=== PATIENT | female | born 1935 | race Caucasian/White ===

== ENCOUNTER 2016-10-02 14:14 | Inpatient (IN) | payer MEDICARE, OTHER ==
[~2016-10-02] VITALS: Ht 165.1 cm; Wt 51.3 kg
[~2016-10-02 14:14] MED LIST: BUPR150T11 PO; CITA20TA5 PO; ENOX40DI SQ; HYDR-2666 PO; IPRA3AMP23 IH; LOSA25TA4 PO; MAGN2400 PO; NITR0.4T SL; PANT40TA5 PO; SIMV20TA3 PO; WARF3TAB PO
[2016-10-02] MEDS ORDERED: NALOXONE 0.4 MG/ML VIAL. IV ONE (14:45)
[2016-10-02 15:00] LABS: BASO % 1 % (0-3); EOS % 0 % (0-3); HEMATOCRIT 46.5 % (36.0-47.0); HEMOGLOBIN 15.1 g/dL (12.0-15.5); LYMPH # 1.2 x10^3/uL (1.0-4.8); LYMPH % 14 % (24-48); MEAN CORPUSCULAR HEMOGLOBIN 31 pg (25-35); MEAN CORPUSCULAR HGB CONC 33 g/dL (31-37); MEAN CORPUSCULAR VOLUME 95 fL (79-100); MONO % 6 % (0-9); NEUT % 79 % (31-73); PLATELET COUNT 252 x10^3/uL (140-400); RED BLOOD COUNT 4.88 x10^6/uL (3.50-5.40); RED CELL DISTRIBUTION WIDTH 14.1 % (11.5-14.5)
[2016-10-02 15:11] LABS: INR 1.1 (0.8-1.1); PROTHROMBIN TIME PATIENT 13.2 SEC (11.7-14.0)
--- NOTE | 2016-10-02 15:20 | RAD ---
Clinical indications: Altered mental status today. History of previous multiple strokes.. Code stroke. Technique: Noncontrast axial cross sectional scanning of the head was performed. PQRS Compliance Statement: One or more of the following individualized dose reduction techniques were utilized for this examination: 1. Automated exposure control 2. Adjustment of the mA and/or kV according to patient size 3. Use of iterative reconstruction technique Comparison: September 15, 2012. Findings: No acute intracranial hemorrhage or midline shift or mass-effect or hydrocephalus or extra-axial fluid collection is seen. Severe bilateral periventricular and subcortical white matter hypodensities are again seen consistent with chronic small vessel ischemic disease in this age group. This has not changed significantly. An old lacunar infarct of the lower brainstem is seen. No skull fracture or pneumocephalus is seen. No opacification of the mastoid sinuses or the paranasal sinuses is seen. The maxillary sinuses are not completely seen in this study. Impression: No acute intracranial hemorrhage is seen. Severe diffuse chronic ischemic disease. If clinically needed, an MRI study of the brain may be helpful for further evaluation. Note-this critical result was called to Dr. Katelyn Jeronimo in the emergency room at 3:15 PM on October 02, 2016.
[2016-10-02 15:25] LABS: CALCIUM 9.2 mg/dL (8.5-10.1); CREATININE 0.7 mg/dL (0.6-1.0); GFR 80.1; POTASSIUM 4.7 mmol/L (3.5-5.1)
[2016-10-02 15:31] LABS: ALBUMIN 2.5 g/dL (3.4-5.0); ALBUMIN/GLOBULIN RATIO 0.5 (1.0-1.7); TOTAL PROTEIN 7.1 g/dL (6.4-8.2)
--- NOTE | 2016-10-02 16:15 | RAD ---
Portable AP semiupright chest x-ray Clinical indications: Code stroke.. Comparison: August 13, 2013. Findings: No acute lung infiltrate or pleural effusion or pulmonary edema or lung mass or pneumothorax is seen. The heart size, pulmonary vasculature, mediastinum and both nura are stable. Old healed left rib cage fractures are seen. Impression: No acute radiographic abnormality is seen.
[2016-10-02] MEDS ORDERED: ACETAMINOPHEN 325 MG TABLET. PO PRN ×2 (17:00→18:30)
[2016-10-02] MEDS ORDERED: ERYTHROMYCIN 0.5% OPHTH OINTMENT 1GM TUBE. OS ONE (17:00)
[2016-10-02] MEDS ORDERED: FENTANYL PF 100 MCG/2 ML VIAL. IV PRN (17:00)
[2016-10-02] MEDS ORDERED: ONDANSETRON PF 4 MG/2 ML VIAL. IV PRN ×2 (17:00→18:30)
--- NOTE | 2016-10-02 17:13 | PHYS DOC ---
Past Medical History Past Medical History: Anemia, Angina, CAD, Cancer, COPD, Diverticulosis, High Cholesterol, Hip Fracture, Hypertension, [place] Additional Past Medical Histor: FEMUR FX, PAIN, PE, DEPRESSIVE DISORDER, HEARTBURN,CATARACT,EDEMA,INSOMNIA Past Surgical History: Cancer Surgery, Hip Replacement Additional Past Surgical Histo: RIGHT MASTECTOMY Alcohol Use: None Drug Use: None Adult General Chief Complaint Chief Complaint: ALTERED MENTAL STATUS HPI HPI Patient is a 80 year old female who presents with altered mental status. Patient unable to provide any history due to her clinical condition. Reportedly group home staff assisted her with shower at 12:00 noon. She was found about one hour later to be completely unresponsive. She could not be awaked at that facility. Transported here by EMS. Not waking up to answer any questions. Family not present during initial evaluation. Review of Systems Review of Systems Unable to obtain due to clinical condition Current Medications Current Medications Current Medications Medications (Trade) Dose Ordered Sig/Daniel Start Time Stop Time Status Last Admin Dose Admin Acetaminophen (Tylenol) 650 mg PRN Q4HRS PRN 10/02/16 17:00 10/03/16 16:59 Erythromycin (Romycin) 0.25 inch 1X ONCE 10/02/16 17:00 10/02/16 17:01 DC Fentanyl Citrate (Fentanyl 2ml Vial) 25 mcg PRN Q2HR PRN 10/02/16 17:00 10/03/16 16:59 Naloxone HCl (Narcan) 0.4 mg 1X ONCE 10/02/16 14:45 10/02/16 14:46 DC 10/02/16 15:12 0.4 MG Ondansetron HCl (Zofran) 4 mg PRN Q8HRS PRN 10/02/16 17:00 10/03/16 16:59 Allergies Allergies Allergies Coded Allergies Type Severity Reaction Last Updated Verified Oxycodone Allergy Unknown 08/13/13 Yes diltiazem HCl Allergy Unknown 08/13/13 Yes Physical Exam Physical Exam Constitutional: Thin, frail, unresponsive. HENT: Normocephalic, atraumatic, bilateral external ears normal, no hemotympanum , oropharynx moist, nose normal. Eyes: PERRLA 2 mm bilaterally, left eye with injected conjunctiva, eyelash matting, no drainage seen. Neck: supple, no stridor. Cardiovascular: RRR, no murmurs, no edema. Lungs & Thorax: Diminished, clear bilaterally,, no respiratory distress. Abdomen: soft, no masses, nondistended. Skin: Warm, dry, no erythema, no rash. Back: No deformity. Extremities: Right upper extremity contracture, otherwise no deformity. Neurologic: Unresponsive, GCS is 6, withdraws to pain. Psychologic: unable to assess due to clinical condition. Current Patient Data Vital Signs Vital Signs Date Time Temp Pulse Resp B/P Pulse Ox O2 Delivery O2 Flow Rate FiO2 10/02/16 14:14 98.7 72 14 187/91 98 Nasal Cannula 2 98.7 Lab Values Laboratory Tests Test 10/02/16 14:20 White Blood Count 9.0x10^3/uL (4.0-11.0) Red Blood Count 4.88x10^6/uL (3.50-5.40) Hemoglobin 15.1g/dL (12.0-15.5) Hematocrit 46.5% (36.0-47.0) Mean Corpuscular Volume 95fL (79-100) Mean Corpuscular Hemoglobin 31pg (25-35) Mean Corpuscular Hemoglobin Concent 33g/dL (31-37) Red Cell Distribution Width 14.1% (11.5-14.5) Platelet Count 252x10^3/uL (140-400) Neutrophils (%) (Auto) 79% (31-73) H Lymphocytes (%) (Auto) 14% (24-48) L Monocytes (%) (Auto) 6% (0-9) Eosinophils (%) (Auto) 0% (0-3) Basophils (%) (Auto) 1% (0-3) Neutrophils # (Auto) 7.1x10^3uL (1.8-7.7) Lymphocytes # (Auto) 1.2x10^3/uL (1.0-4.8) Monocytes # (Auto) 0.5x10^3/uL (0.0-1.1) Eosinophils # (Auto) 0.0x10^3/uL (0.0-0.7) Basophils # (Auto) 0.0x10^3/uL (0.0-0.2) Prothrombin Time 13.2SEC (11.7-14.0) Prothrombin Time INR 1.1 (0.8-1.1) PTT 30SEC (24-38) Sodium Level 139mmol/L (136-145) Potassium Level 4.7mmol/L (3.5-5.1) Chloride Level 102mmol/L (98-107) Carbon Dioxide Level 31mmol/L (21-32) Anion Gap 6 (6-14) Blood Urea Nitrogen 16mg/dL (7-20) Creatinine 0.7mg/dL (0.6-1.0) Estimated GFR (Cockcroft-Gault) 80.1 BUN/Creatinine Ratio 23 (6-20) H Glucose Level 90mg/dL (70-99) Calcium Level 9.2mg/dL (8.5-10.1) Total Bilirubin 1.0mg/dL (0.2-1.0) Aspartate Amino Transferase (AST) 24U/L (15-37) Alanine Aminotransferase (ALT) 17U/L (14-59) Alkaline Phosphatase 187U/L (46-116) H Troponin I Quantitative 0.017ng/mL (0.000-0.055) PW-Tcc-U-Type Natriuretic Peptide 2563pg/mL (0-449) H Total Protein 7.1g/dL (6.4-8.2) Albumin 2.5g/dL (3.4-5.0) L Albumin/Globulin Ratio 0.5 (1.0-1.7) L Salicylates Level < 2.8mg/dL (2.8-20.0) L Salicylate Last Dose Date Unknown Salicylate Last Dose Time Unknown Acetaminophen Level 2.5mcg/ml (10-30) L Acetaminophen Last Dose Date Unknown Acetaminophen Last Dose Time Unknown Laboratory Tests 10/02/16 14:20 Laboratory Tests 10/02/16 14:20 EKG EKG interpreted by me: NSR rate 77, no ST elevation, T waves inverted in 3 & aVF without ST depression, QTc prolonged 473 ms, PACs.[] Radiology/Procedures Radiology/Procedures PROCEDURE: CT CODE STROKE HEAD WO Clinical indications: Altered mental status today. History of previous multiple strokes.. Code stroke. Technique: Noncontrast axial cross sectional scanning of the head was performed. PQRS Compliance Statement: One or more of the following individualized dose reduction techniques were utilized for this examination: 1. Automated exposure control 2. Adjustment of the mA and/or kV according to patient size 3. Use of iterative reconstruction technique Comparison: September 15, 2012. Findings: No acute intracranial hemorrhage or midline shift or mass-effect or hydrocephalus or extra-axial fluid collection is seen. Severe bilateral periventricular and subcortical white matter hypodensities are again seen consistent with chronic small vessel ischemic disease in this age group. This has not changed significantly. An old lacunar infarct of the lower brainstem is seen. No skull fracture or pneumocephalus is seen. No opacification of the mastoid sinuses or the paranasal sinuses is seen. The maxillary sinuses are not completely seen in this study. Impression: No acute intracranial hemorrhage is seen. Severe diffuse chronic ischemic disease. If clinically needed, an MRI study of the brain may be helpful for further evaluation. Note-this critical result was called to Dr. Charlie Jeronimo in the emergency room at 3:15 PM on October 02, 2016. DICTATED and SIGNED BY: BRANDON MERRILL MD DATE: 10/02/16 1510 PROCEDURE: CHEST AP ONLY Portable AP semiupright chest x-ray Clinical indications: Code stroke.. Comparison: August 13, 2013. Findings: No acute lung infiltrate or pleural effusion or pulmonary edema or lung mass or pneumothorax is seen. The heart size, pulmonary vasculature, mediastinum and both nura are stable. Old healed left rib cage fractures are seen. Impression: No acute radiographic abnormality is seen. DICTATED and SIGNED BY: BRANDON MERRILL MD DATE: 10/02/16 1611[] Course & Med Decision Making Course & Med Decision Making Pertinent Labs and Imaging studies reviewed. (See chart for details) Patient presents with decreased level of consciousness/altered mental status from group home. Last normal at noon. Protecting airway during my evaluation. Patient has DNR order. Obtained stat head CT consistent with code stroke protocol. This was negative for hemorrhage, no definite acute ischemic process. I discussed with her 2 daughters after this result was obtained. They felt that the patient would not want to receive TPA if this were due to stroke. Result was obtained at about 3.5 hours after onset of symptoms, not clear stroke etiology, risks of administering TPA likely to be greater than benefits. I agree with not administering TPA. Administered Narcan due to possible contribution of opiates to her condition today. Obtained other labs, EKG, chest x-ray. While evaluation was pending the patient began to wake up more. She was able to speak clearly and teary on a conversation with her daughters. She was able to move her left side freely, normal hemiparesis of her right upper and lower extremities is unchanged from baseline. She felt well. She did agree with plan for admission for further evaluation. Discussed with Dr. Shaikh who agrees to admit to inpatient status, neurology consult placed to Dr. Parsons. Patient admitted in stable condition. [] Dragon Disclaimer Dragon Disclaimer This electronic medical record was generated, in whole or in part, using a voice recognition dictation system. Departure Departure Impression: Primary Impression: Altered mental status Additional Impressions: Decreased level of consciousness Essential hypertension Disposition: 09 ADMITTED INPATIENT Admitting Physician: Zoey Shaikh Condition: STABLE Problem Qualifiers CHARLIE JERONIMO MD Oct 02, 2016 17:13
[2016-10-02] MEDS ORDERED: HYDROCODONE/APAP 5/325MG TABLET. PO PRN (18:15)
[2016-10-02] MEDS ORDERED: NITROGLYCERIN SUBLINGUAL 0.4 MG BOTTLE OF 25. SL SCH (18:15)
[2016-10-02] MEDS ORDERED: IPRATRPIUM/ALBUTEROL 0.5/2.5MG 3 ML NEBU. NEB PRN (18:15)
--- NOTE | 2016-10-02 18:27 | PDOC1 ---
History and Physical Date of Admission Date of Admission 10/02/16 Identification/Chief Complaint Chief Complaint AMS Problems: Source Source: Caregiver, Chart review History of Present Illness History of Present Illness HPI HPI Patient is a 80 year old female who presents with altered mental statu today. Pt has mild dementia, knows it is hospital, need a min to think which one, doesnot know the year, and family denies dementia. FRom snf. Pt dosenot remember what happened. as per ERP, and daughter who were called BY snf, PT got a shower today, sit in a chair, then became unresponsiveness about 1.30pm. Pt was sent to ER, eventually woke up about 40min later. pt now feels normal. Right side hemiparesis with h/o stroke. on thicken liquid. denies fever, chills, cough , N/V, chest pain. PT GOT narcan in ER,no response. Family denies HTN, but ON LOsartan and BP 190s in ER. also denies OK, but had PCI before. Past Medical History Cardiovascular: CAD Pulmonary: COPD Family History Family History: No Significant Social History Smoke: No ALCOHOL: none Drugs: None Current Problem List Problem List Problems Medical Problems: (1) Altered mental status Status: Acute (2) Decreased level of consciousness Status: Acute (3) Essential hypertension Status: Acute Current Medications Current Medications Current Medications Medications (Trade) Dose Ordered Sig/Daniel Start Time Stop Time Status Last Admin Dose Admin Acetaminophen (Tylenol) 650 mg PRN Q4HRS PRN 10/02/16 17:00 10/03/16 16:59 Erythromycin (Romycin) 0.25 inch 1X ONCE 10/02/16 17:00 10/02/16 17:01 DC Fentanyl Citrate (Fentanyl 2ml Vial) 25 mcg PRN Q2HR PRN 10/02/16 17:00 10/03/16 16:59 Naloxone HCl (Narcan) 0.4 mg 1X ONCE 10/02/16 14:45 10/02/16 14:46 DC 10/02/16 15:12 0.4 MG Ondansetron HCl (Zofran) 4 mg PRN Q8HRS PRN 10/02/16 17:00 10/03/16 16:59 Allergies Allergies Allergies Coded Allergies Type Severity Reaction Last Updated Verified Oxycodone Allergy Unknown 08/13/13 Yes diltiazem HCl Allergy Unknown 08/13/13 Yes ROS Review of System CONSTITUTIONAL: No fever or chills EYES: No recent changes SKIN: No rash or itching CARDIOVASCULAR: No chest pain, syncope, palpitations, or edema RESPIRATORY: No SOB or cough GASTROINTESTINAL: No nausea, vomiting or abdominal pain NEUROLOGICAL: No headaches or weakness ENDOCRINE: No cold or heat intolerance GENITOURINARY: No urgency or frequency of urination MUSCULOSKELETAL: No back pain or joint pain LYMPHATICS: No enlarged lymph nodes PSYCHIATRIC: No anxiety or depression Physical Exam Physical Exam GEN.: No apparent distress. Alert and oriented x2 HEENT: Head is normocephalic, atraumatic NECK: Supple. LUNGS: Clear to auscultation. HEART: RRR, S1, S2 present. Peripheral pulses intact ABDOMEN: Soft, nontender. Positive bowel sounds. EXTREMITIES: Without any cyanosis. NEUROLOGIC: Normal speech, normal tone. right side hemiparesis PSYCHIATRIC: Normal affect, normal mood. SKIN: No ulcerations Vitals Vitals Vital Signs Date Time Temp Pulse Resp B/P Pulse Ox O2 Delivery O2 Flow Rate FiO2 10/02/16 14:14 98.7 72 14 187/91 98 Nasal Cannula 2 98.7 Labs Labs Laboratory Tests Test 10/02/16 14:20 White Blood Count 9.0x10^3/uL (4.0-11.0) Red Blood Count 4.88x10^6/uL (3.50-5.40) Hemoglobin 15.1g/dL (12.0-15.5) Hematocrit 46.5% (36.0-47.0) Mean Corpuscular Volume 95fL (79-100) Mean Corpuscular Hemoglobin 31pg (25-35) Mean Corpuscular Hemoglobin Concent 33g/dL (31-37) Red Cell Distribution Width 14.1% (11.5-14.5) Platelet Count 252x10^3/uL (140-400) Neutrophils (%) (Auto) 79% (31-73) Lymphocytes (%) (Auto) 14% (24-48) Monocytes (%) (Auto) 6% (0-9) Eosinophils (%) (Auto) 0% (0-3) Basophils (%) (Auto) 1% (0-3) Neutrophils # (Auto) 7.1x10^3uL (1.8-7.7) Lymphocytes # (Auto) 1.2x10^3/uL (1.0-4.8) Monocytes # (Auto) 0.5x10^3/uL (0.0-1.1) Eosinophils # (Auto) 0.0x10^3/uL (0.0-0.7) Basophils # (Auto) 0.0x10^3/uL (0.0-0.2) Prothrombin Time 13.2SEC (11.7-14.0) Prothromb Time International Ratio 1.1 (0.8-1.1) Activated Partial Thromboplast Time 30SEC (24-38) Sodium Level 139mmol/L (136-145) Potassium Level 4.7mmol/L (3.5-5.1) Chloride Level 102mmol/L (98-107) Carbon Dioxide Level 31mmol/L (21-32) Anion Gap 6 (6-14) Blood Urea Nitrogen 16mg/dL (7-20) Creatinine 0.7mg/dL (0.6-1.0) Estimated GFR (Cockcroft-Gault) 80.1 BUN/Creatinine Ratio 23 (6-20) Glucose Level 90mg/dL (70-99) Calcium Level 9.2mg/dL (8.5-10.1) Total Bilirubin 1.0mg/dL (0.2-1.0) Aspartate Amino Transf (AST/SGOT) 24U/L (15-37) Alanine Aminotransferase (ALT/SGPT) 17U/L (14-59) Alkaline Phosphatase 187U/L (46-116) Troponin I Quantitative 0.017ng/mL (0.000-0.055) UH-[id number]-Q-Type Natriuretic Peptide 2563pg/mL (0-449) Total Protein 7.1g/dL (6.4-8.2) Albumin 2.5g/dL (3.4-5.0) Albumin/Globulin Ratio 0.5 (1.0-1.7) Salicylates Level < 2.8mg/dL (2.8-20.0) Salicylate Last Dose Date Unknown Salicylate Last Dose Time Unknown Acetaminophen Level 2.5mcg/ml (10-30) Acetaminophen Last Dose Date Unknown Acetaminophen Last Dose Time Unknown Laboratory Tests Test 10/02/16 14:20 White Blood Count 9.0x10^3/uL (4.0-11.0) Red Blood Count 4.88x10^6/uL (3.50-5.40) Hemoglobin 15.1g/dL (12.0-15.5) Hematocrit 46.5% (36.0-47.0) Mean Corpuscular Volume 95fL (79-100) Mean Corpuscular Hemoglobin 31pg (25-35) Mean Corpuscular Hemoglobin Concent 33g/dL (31-37) Red Cell Distribution Width 14.1% (11.5-14.5) Platelet Count 252x10^3/uL (140-400) Neutrophils (%) (Auto) 79% (31-73) Lymphocytes (%) (Auto) 14% (24-48) Monocytes (%) (Auto) 6% (0-9) Eosinophils (%) (Auto) 0% (0-3) Basophils (%) (Auto) 1% (0-3) Neutrophils # (Auto) 7.1x10^3uL (1.8-7.7) Lymphocytes # (Auto) 1.2x10^3/uL (1.0-4.8) Monocytes # (Auto) 0.5x10^3/uL (0.0-1.1) Eosinophils # (Auto) 0.0x10^3/uL (0.0-0.7) Basophils # (Auto) 0.0x10^3/uL (0.0-0.2) Prothrombin Time 13.2SEC (11.7-14.0) Prothromb Time International Ratio 1.1 (0.8-1.1) Activated Partial Thromboplast Time 30SEC (24-38) Sodium Level 139mmol/L (136-145) Potassium Level 4.7mmol/L (3.5-5.1) Chloride Level 102mmol/L (98-107) Carbon Dioxide Level 31mmol/L (21-32) Anion Gap 6 (6-14) Blood Urea Nitrogen 16mg/dL (7-20) Creatinine 0.7mg/dL (0.6-1.0) Estimated GFR (Cockcroft-Gault) 80.1 BUN/Creatinine Ratio 23 (6-20) Glucose Level 90mg/dL (70-99) Calcium Level 9.2mg/dL (8.5-10.1) Total Bilirubin 1.0mg/dL (0.2-1.0) Aspartate Amino Transf (AST/SGOT) 24U/L (15-37) Alanine Aminotransferase (ALT/SGPT) 17U/L (14-59) Alkaline Phosphatase 187U/L (46-116) Troponin I Quantitative 0.017ng/mL (0.000-0.055) KQ-Rsm-S-Type Natriuretic Peptide 2563pg/mL (0-449) Total Protein 7.1g/dL (6.4-8.2) Albumin 2.5g/dL (3.4-5.0) Albumin/Globulin Ratio 0.5 (1.0-1.7) Salicylates Level < 2.8mg/dL (2.8-20.0) Salicylate Last Dose Date Unknown Salicylate Last Dose Time Unknown Acetaminophen Level 2.5mcg/ml (10-30) Acetaminophen Last Dose Date Unknown Acetaminophen Last Dose Time Unknown VTE Prophylaxis Ordered VTE Prophylaxis Devices: Yes VTE Pharmacological Prophylaxi: No Assessment/Plan Assessment/Plan 1. AMS with unresponsiveness, not clear etiology 2. baseline mild dementia 3. from SNF 4. h/o CAD WITH PCI 5. HTN 6. HLD 7. BCa post sx 8. mild malnutrition 9. h/o stroke with right side hemiparesis plan: 1, neuro consult 2. MRI brain 3. cont home meds on warfarin, not clear etiology INR daily 4. DNR ODALIS KING MD Oct 02, 2016 18:27
[2016-10-02] MEDS ORDERED: hydrALAZINE 20 MG/ML VIAL. IVP PRN (18:30)
[2016-10-02] MEDS ORDERED: MAGNESIUM HYDROXIDE 2,400 MG/30 ML ORAL.SUSP. PO PRN (18:45)
[2016-10-02 18:46] LABS: BILIRUBIN,URINE NEGATIVE (NEG); GLUCOSE,URINE NEGATIVE (NEG); NITRITE,URINE POSITIVE (NEG); PROTEIN,URINE NEGATIVE (NEG-TRACE)
[2016-10-02] MEDS ORDERED: WARFARIN 3 MG TABLET. PO SCH (19:00)
[2016-10-02 19:05] LABS: BACTERIA,URINE MANY /HPF (0-FEW); RBC,URINE 0 /HPF (0-2); SQUAMOUS EPITHELIAL CELL,UR FEW /LPF
[2016-10-02 19:35] VITALS: BP 164/94
[2016-10-02 19:40] VITALS: BP 164/94
--- NOTE | 2016-10-02 19:41 | RAD ---
BRAIN W/O CONTRAST Indication: PT C/O AMS WITH HX PAST STROKES...[phone] Reason: AMS / Spl. Instructions: / History: COMPARISON: CT head from February 06, 2015 TECHNIQUE: Axial diffusion weighted imaging was obtained. Additional sagittal T1, axial T1, axial FLAIR, and axial T2 weighted imaging of the brain was also performed. FINDINGS: There is no restricted diffusion to suggest acute or recent infarct. No acute intracranial hemorrhage or extra-axial fluid collection. There is generalized cerebral volume loss to a moderate degree. There is also moderate confluent white matter disease involving most of the cerebral hemisphere white matter and portions of the cerebellar white matter. The gradient images show scattered foci of hemosiderin deposition which may represent sequelae of previous hypertensive micro hemorrhages. There is no midline shift or mass effect. Arterial flow voids are maintained at the level of the skullbase. Globes orbits are within normal limits. Paranasal sinuses and mastoid air cells are clear. There are areas of encephalomalacia in the left frontal lobe and left parietal occipital lobes from old infarct. Impression: - Negative for acute or recent infarct. No acute intracranial abnormality. - Moderate cerebral volume loss and white matter disease. There are also scattered foci of hemosiderin deposition. This constellation of findings could reflect sequelae of longstanding hypertension. Cerebral amyloid disease is a less likely alternative. - Old left frontal lobe and left parietal occipital lobe infarcts. Electronically signed by: Deepak Tejeda (Oct 02, 2016 19:41:07)
[2016-10-02] MEDS ORDERED: ENOXAPARIN 40 MG/0.4 ML SYRINGE. SQ SCH (21:00)
[2016-10-02] MEDS: SIMVASTATIN 20 MG TABLET PO SCH (21:09)
[2016-10-02 23:38] VITALS: BP 124/63
[2016-10-03] VITALS (7 sets, daily range): BP systolic 137–153; BP diastolic 65–75
[2016-10-03] MEDS ORDERED: FERR-26 PO (02:29)
[2016-10-03 05:31] LABS: BASO % 1 % (0-3); EOS % 1 % (0-3); HEMATOCRIT 41.5 % (36.0-47.0); HEMOGLOBIN 13.6 g/dL (12.0-15.5); LYMPH % 13 % (24-48); MEAN CORPUSCULAR HEMOGLOBIN 31 pg (25-35); MEAN CORPUSCULAR HGB CONC 33 g/dL (31-37); MEAN CORPUSCULAR VOLUME 95 fL (79-100); MONO % 9 % (0-9); NEUT % 76 % (31-73); PLATELET COUNT 246 x10^3/uL (140-400); RED BLOOD COUNT 4.37 x10^6/uL (3.50-5.40); RED CELL DISTRIBUTION WIDTH 14.1 % (11.5-14.5); WHITE BLOOD COUNT 7.7 x10^3/uL (4.0-11.0)
[2016-10-03 05:37] LABS: INR 1.1 (0.8-1.1); PROTHROMBIN TIME PATIENT 13.7 SEC (11.7-14.0)
[2016-10-03 05:39] LABS: CALCIUM 8.9 mg/dL (8.5-10.1); CREATININE 0.6 mg/dL (0.6-1.0); GFR 95.7; POTASSIUM 3.8 mmol/L (3.5-5.1)
[2016-10-03] MEDS: PANTOPRAZOLE 40 MG TABLET.DR. PO SCH (06:15)
[2016-10-03] MEDS: CITALOPRAM 20 MG TABLET. PO SCH (09:23)
[2016-10-03] MEDS: LOSARTAN POTASSIUM 25 MG TABLET. PO SCH (09:23)
[2016-10-03] MEDS: buPROPion SR 150 MG TABLET.SA PO SCH (09:23)
[2016-10-03] MEDS: CEFTRIAXONE SODIUM 1 GM in IV NORMAL SALINE 50ML 50 ML IV SCH (09:23)
--- NOTE | 2016-10-03 11:20 | PDOC ---
PROGRESS NOTES Chief Complaint Chief Complaint 1. AMS with unresponsiveness, not clear etiology 2. baseline mild dementia 3. from SNF 4. h/o CAD WITH PCI 5. HTN 6. HLD 7. BCa post sx 8. mild malnutrition 9. h/o stroke with right side hemiparesis History of Present Illness History of Present Illness non verbal to me today CUrled up Per records on dysphagia 2 with honey thickened at SNU Chart reviewed, SNU resident (GL?) Onw arf bec of hx PE BS 69 this AM from 90s - on low side UTI on UA PLAn: Start IV antibiotics for UTI Urine cx DYsphagia diet PT/OT Ok to t/o CVC prn IV pushes for BP (-on high side) - lost IV site - ok for clonidine pO q1 prn Address hypoglycemia - not on insulin - not eating? d5 pushes prn Dw RN Vitals Vitals Vital Signs Date Time Temp Pulse Resp B/P Pulse Ox O2 Delivery O2 Flow Rate FiO2 10/03/16 09:23 100 145/75 10/03/16 08:00 Room Air 10/03/16 07:00 97.7 20 91 97.7 10/02/16 23:38 2.0 Physical Exam Lungs: Wheezing, Other Labs LABS Laboratory Tests Test 10/02/16 14:20 10/02/16 18:13 10/03/16 04:00 White Blood Count 9.0x10^3/uL (4.0-11.0) 7.7x10^3/uL (4.0-11.0) Red Blood Count 4.88x10^6/uL (3.50-5.40) 4.37x10^6/uL (3.50-5.40) Hemoglobin 15.1g/dL (12.0-15.5) 13.6g/dL (12.0-15.5) Hematocrit 46.5% (36.0-47.0) 41.5% (36.0-47.0) Mean Corpuscular Volume 95fL (79-100) 95fL (79-100) Mean Corpuscular Hemoglobin 31pg (25-35) 31pg (25-35) Mean Corpuscular Hemoglobin Concent 33g/dL (31-37) 33g/dL (31-37) Red Cell Distribution Width 14.1% (11.5-14.5) 14.1% (11.5-14.5) Platelet Count 252x10^3/uL (140-400) 246x10^3/uL (140-400) Neutrophils (%) (Auto) 79% (31-73) 76% (31-73) Lymphocytes (%) (Auto) 14% (24-48) 13% (24-48) Monocytes (%) (Auto) 6% (0-9) 9% (0-9) Eosinophils (%) (Auto) 0% (0-3) 1% (0-3) Basophils (%) (Auto) 1% (0-3) 1% (0-3) Neutrophils # (Auto) 7.1x10^3uL (1.8-7.7) 5.8x10^3uL (1.8-7.7) Lymphocytes # (Auto) 1.2x10^3/uL (1.0-4.8) 1.0x10^3/uL (1.0-4.8) Monocytes # (Auto) 0.5x10^3/uL (0.0-1.1) 0.7x10^3/uL (0.0-1.1) Eosinophils # (Auto) 0.0x10^3/uL (0.0-0.7) 0.1x10^3/uL (0.0-0.7) Basophils # (Auto) 0.0x10^3/uL (0.0-0.2) 0.0x10^3/uL (0.0-0.2) Prothrombin Time 13.2SEC (11.7-14.0) 13.7SEC (11.7-14.0) Prothromb Time International Ratio 1.1 (0.8-1.1) 1.1 (0.8-1.1) Activated Partial Thromboplast Time 30SEC (24-38) Sodium Level 139mmol/L (136-145) 142mmol/L (136-145) Potassium Level 4.7mmol/L (3.5-5.1) 3.8mmol/L (3.5-5.1) Chloride Level 102mmol/L (98-107) 104mmol/L (98-107) Carbon Dioxide Level 31mmol/L (21-32) 31mmol/L (21-32) Anion Gap 6 (6-14) 7 (6-14) Blood Urea Nitrogen 16mg/dL (7-20) 16mg/dL (7-20) Creatinine 0.7mg/dL (0.6-1.0) 0.6mg/dL (0.6-1.0) Estimated GFR (Cockcroft-Gault) 80.1 95.7 BUN/Creatinine Ratio 23 (6-20) Glucose Level 90mg/dL (70-99) 69mg/dL (70-99) Calcium Level 9.2mg/dL (8.5-10.1) 8.9mg/dL (8.5-10.1) Total Bilirubin 1.0mg/dL (0.2-1.0) Aspartate Amino Transf (AST/SGOT) 24U/L (15-37) Alanine Aminotransferase (ALT/SGPT) 17U/L (14-59) Alkaline Phosphatase 187U/L (46-116) Troponin I Quantitative 0.017ng/mL (0.000-0.055) OX-Fpm-O-Type Natriuretic Peptide 2563pg/mL (0-449) Total Protein 7.1g/dL (6.4-8.2) Albumin 2.5g/dL (3.4-5.0) Albumin/Globulin Ratio 0.5 (1.0-1.7) Salicylates Level < 2.8mg/dL (2.8-20.0) Salicylate Last Dose Date Unknown Salicylate Last Dose Time Unknown Acetaminophen Level 2.5mcg/ml (10-30) Acetaminophen Last Dose Date Unknown Acetaminophen Last Dose Time Unknown Urine Collection Type U cath Urine Color Yellow Urine Clarity Clear Urine pH 6.0 Urine Specific [place] 1.020 Urine Protein Negativemg/dL (NEG-TRACE) Urine Glucose (UA) Negativemg/dL (NEG) Urine Ketones (Stick) 15mg/dL (NEG) Urine Blood Negative (NEG) Urine Nitrite Positive (NEG) Urine Bilirubin Negative (NEG) Urine Urobilinogen Dipstick 2.0mg/dL (0.2 mg/dL) Urine Leukocyte Esterase Small (NEG) Urine RBC 0/HPF (0-2) Urine WBC 11-20/HPF (0-4) Urine Squamous Epithelial Cells Few/LPF Urine Bacteria Many/HPF (0-FEW) Urine Mucus Slight/LPF Review of Systems Review of Systems non verbal Assessment and Plan Assessmemt and Plan Problems Medical Problems: (1) Altered mental status Status: Acute (2) Decreased level of consciousness Status: Acute (3) Essential hypertension Status: Acute Problems: Comment Review of Relevant I have reviewed the following items prince (where applicable) has been applied. Labs Laboratory Tests Test 10/02/16 14:20 10/02/16 18:13 10/03/16 04:00 White Blood Count 9.0x10^3/uL (4.0-11.0) 7.7x10^3/uL (4.0-11.0) Red Blood Count 4.88x10^6/uL (3.50-5.40) 4.37x10^6/uL (3.50-5.40) Hemoglobin 15.1g/dL (12.0-15.5) 13.6g/dL (12.0-15.5) Hematocrit 46.5% (36.0-47.0) 41.5% (36.0-47.0) Mean Corpuscular Volume 95fL (79-100) 95fL (79-100) Mean Corpuscular Hemoglobin 31pg (25-35) 31pg (25-35) Mean Corpuscular Hemoglobin Concent 33g/dL (31-37) 33g/dL (31-37) Red Cell Distribution Width 14.1% (11.5-14.5) 14.1% (11.5-14.5) Platelet Count 252x10^3/uL (140-400) 246x10^3/uL (140-400) Neutrophils (%) (Auto) 79% (31-73) 76% (31-73) Lymphocytes (%) (Auto) 14% (24-48) 13% (24-48) Monocytes (%) (Auto) 6% (0-9) 9% (0-9) Eosinophils (%) (Auto) 0% (0-3) 1% (0-3) Basophils (%) (Auto) 1% (0-3) 1% (0-3) Neutrophils # (Auto) 7.1x10^3uL (1.8-7.7) 5.8x10^3uL (1.8-7.7) Lymphocytes # (Auto) 1.2x10^3/uL (1.0-4.8) 1.0x10^3/uL (1.0-4.8) Monocytes # (Auto) 0.5x10^3/uL (0.0-1.1) 0.7x10^3/uL (0.0-1.1) Eosinophils # (Auto) 0.0x10^3/uL (0.0-0.7) 0.1x10^3/uL (0.0-0.7) Basophils # (Auto) 0.0x10^3/uL (0.0-0.2) 0.0x10^3/uL (0.0-0.2) Prothrombin Time 13.2SEC (11.7-14.0) 13.7SEC (11.7-14.0) Prothromb Time International Ratio 1.1 (0.8-1.1) 1.1 (0.8-1.1) Activated Partial Thromboplast Time 30SEC (24-38) Sodium Level 139mmol/L (136-145) 142mmol/L (136-145) Potassium Level 4.7mmol/L (3.5-5.1) 3.8mmol/L (3.5-5.1) Chloride Level 102mmol/L (98-107) 104mmol/L (98-107) Carbon Dioxide Level 31mmol/L (21-32) 31mmol/L (21-32) Anion Gap 6 (6-14) 7 (6-14) Blood Urea Nitrogen 16mg/dL (7-20) 16mg/dL (7-20) Creatinine 0.7mg/dL (0.6-1.0) 0.6mg/dL (0.6-1.0) Estimated GFR (Cockcroft-Gault) 80.1 95.7 BUN/Creatinine Ratio 23 (6-20) Glucose Level 90mg/dL (70-99) 69mg/dL (70-99) Calcium Level 9.2mg/dL (8.5-10.1) 8.9mg/dL (8.5-10.1) Total Bilirubin 1.0mg/dL (0.2-1.0) Aspartate Amino Transf (AST/SGOT) 24U/L (15-37) Alanine Aminotransferase (ALT/SGPT) 17U/L (14-59) Alkaline Phosphatase 187U/L (46-116) Troponin I Quantitative 0.017ng/mL (0.000-0.055) RF-Eaz-A-Type Natriuretic Peptide 2563pg/mL (0-449) Total Protein 7.1g/dL (6.4-8.2) Albumin 2.5g/dL (3.4-5.0) Albumin/Globulin Ratio 0.5 (1.0-1.7) Salicylates Level < 2.8mg/dL (2.8-20.0) Salicylate Last Dose Date Unknown Salicylate Last Dose Time Unknown Acetaminophen Level 2.5mcg/ml (10-30) Acetaminophen Last Dose Date Unknown Acetaminophen Last Dose Time Unknown Urine Collection Type U cath Urine Color Yellow Urine Clarity Clear Urine pH 6.0 Urine Specific [place] 1.020 Urine Protein Negativemg/dL (NEG-TRACE) Urine Glucose (UA) Negativemg/dL (NEG) Urine Ketones (Stick) 15mg/dL (NEG) Urine Blood Negative (NEG) Urine Nitrite Positive (NEG) Urine Bilirubin Negative (NEG) Urine Urobilinogen Dipstick 2.0mg/dL (0.2 mg/dL) Urine Leukocyte Esterase Small (NEG) Urine RBC 0/HPF (0-2) Urine WBC 11-20/HPF (0-4) Urine Squamous Epithelial Cells Few/LPF Urine Bacteria Many/HPF (0-FEW) Urine Mucus Slight/LPF Laboratory Tests Test 10/02/16 14:20 10/02/16 18:13 10/03/16 04:00 White Blood Count 9.0x10^3/uL (4.0-11.0) 7.7x10^3/uL (4.0-11.0) Red Blood Count 4.88x10^6/uL (3.50-5.40) 4.37x10^6/uL (3.50-5.40) Hemoglobin 15.1g/dL (12.0-15.5) 13.6g/dL (12.0-15.5) Hematocrit 46.5% (36.0-47.0) 41.5% (36.0-47.0) Mean Corpuscular Volume 95fL (79-100) 95fL (79-100) Mean Corpuscular Hemoglobin 31pg (25-35) 31pg (25-35) Mean Corpuscular Hemoglobin Concent 33g/dL (31-37) 33g/dL (31-37) Red Cell Distribution Width 14.1% (11.5-14.5) 14.1% (11.5-14.5) Platelet Count 252x10^3/uL (140-400) 246x10^3/uL (140-400) Neutrophils (%) (Auto) 79% (31-73) 76% (31-73) Lymphocytes (%) (Auto) 14% (24-48) 13% (24-48) Monocytes (%) (Auto) 6% (0-9) 9% (0-9) Eosinophils (%) (Auto) 0% (0-3) 1% (0-3) Basophils (%) (Auto) 1% (0-3) 1% (0-3) Neutrophils # (Auto) 7.1x10^3uL (1.8-7.7) 5.8x10^3uL (1.8-7.7) Lymphocytes # (Auto) 1.2x10^3/uL (1.0-4.8) 1.0x10^3/uL (1.0-4.8) Monocytes # (Auto) 0.5x10^3/uL (0.0-1.1) 0.7x10^3/uL (0.0-1.1) Eosinophils # (Auto) 0.0x10^3/uL (0.0-0.7) 0.1x10^3/uL (0.0-0.7) Basophils # (Auto) 0.0x10^3/uL (0.0-0.2) 0.0x10^3/uL (0.0-0.2) Prothrombin Time 13.2SEC (11.7-14.0) 13.7SEC (11.7-14.0) Prothromb Time International Ratio 1.1 (0.8-1.1) 1.1 (0.8-1.1) Activated Partial Thromboplast Time 30SEC (24-38) Sodium Level 139mmol/L (136-145) 142mmol/L (136-145) Potassium Level 4.7mmol/L (3.5-5.1) 3.8mmol/L (3.5-5.1) Chloride Level 102mmol/L (98-107) 104mmol/L (98-107) Carbon Dioxide Level 31mmol/L (21-32) 31mmol/L (21-32) Anion Gap 6 (6-14) 7 (6-14) Blood Urea Nitrogen 16mg/dL (7-20) 16mg/dL (7-20) Creatinine 0.7mg/dL (0.6-1.0) 0.6mg/dL (0.6-1.0) Estimated GFR (Cockcroft-Gault) 80.1 95.7 BUN/Creatinine Ratio 23 (6-20) Glucose Level 90mg/dL (70-99) 69mg/dL (70-99) Calcium Level 9.2mg/dL (8.5-10.1) 8.9mg/dL (8.5-10.1) Total Bilirubin 1.0mg/dL (0.2-1.0) Aspartate Amino Transf (AST/SGOT) 24U/L (15-37) Alanine Aminotransferase (ALT/SGPT) 17U/L (14-59) Alkaline Phosphatase 187U/L (46-116) Troponin I Quantitative 0.017ng/mL (0.000-0.055) PV-Scv-P-Type Natriuretic Peptide 2563pg/mL (0-449) Total Protein 7.1g/dL (6.4-8.2) Albumin 2.5g/dL (3.4-5.0) Albumin/Globulin Ratio 0.5 (1.0-1.7) Salicylates Level < 2.8mg/dL (2.8-20.0) Salicylate Last Dose Date Unknown Salicylate Last Dose Time Unknown Acetaminophen Level 2.5mcg/ml (10-30) Acetaminophen Last Dose Date Unknown Acetaminophen Last Dose Time Unknown Urine Collection Type U cath Urine Color Yellow Urine Clarity Clear Urine pH 6.0 Urine Specific [place] 1.020 Urine Protein Negativemg/dL (NEG-TRACE) Urine Glucose (UA) Negativemg/dL (NEG) Urine Ketones (Stick) 15mg/dL (NEG) Urine Blood Negative (NEG) Urine Nitrite Positive (NEG) Urine Bilirubin Negative (NEG) Urine Urobilinogen Dipstick 2.0mg/dL (0.2 mg/dL) Urine Leukocyte Esterase Small (NEG) Urine RBC 0/HPF (0-2) Urine WBC 11-20/HPF (0-4) Urine Squamous Epithelial Cells Few/LPF Urine Bacteria Many/HPF (0-FEW) Urine Mucus Slight/LPF Medications Current Medications Naloxone HCl (Narcan) 0.4 mg 1X ONCE IV Last administered on 10/02/16 15:12; Start 10/02/16 at 14:45; Stop 10/02/16 at 14:46; Status DC Erythromycin (Romycin) 0.25 inch 1X ONCE OS ; Start 10/02/16 at 17:00; Stop 10/02 at 17:01; Status DC Ondansetron HCl (Zofran) 4 mg PRN Q8HRS PRN IV NAUSEA/VOMITING; Start 10/02/16 at 17:00; Stop 10/02/16 at 18:31; Status DC Fentanyl Citrate (Fentanyl 2ml Vial) 25 mcg PRN Q2HR PRN IV PAIN; Start at 17:00; Stop 10/03/16 at 16:59 Acetaminophen (Tylenol) 650 mg PRN Q4HRS PRN PO FEVER; Start 10/02/16 at 17:00; Stop 10/02/16 at 18:29; Status DC Bupropion HCl (Wellbutrin Sr) 150 mg DAILY PO Last administered on 10/03/16 09: 23; Start 10/03/16 at 09:00 Citalopram Hydrobromide (Celexa) 20 mg DAILY PO Last administered on 10/03/16 09:23; Start 10/03/16 at 09:00 Enoxaparin Sodium (Lovenox 40mg Syringe) 40 mg Q24H SQ Last administered on 10/02 21:10; Start 10/02/16 at 21:00 Acetaminophen/ Hydrocodone Bitart (Lortab 5/325) 1 tab PRN Q6HRS PRN PO PAIN; Start 10/02/16 at 18:15 Albuterol/ Ipratropium (Duoneb) 3 ml PRN Q6HRS PRN NEB SHORTNESS OF BREATH; Start 10/02/16 at 18:15 Losartan Potassium (Cozaar) 25 mg DAILY PO Last administered on 10/03/16 09:23 ; Start 10/03/16 at 09:00 Nitroglycerin (Nitrostat) 0.4 mg PRN Q5MIN SL ; Start 10/02/16 at 18:15 Pantoprazole Sodium (Protonix) 40 mg DAILYAC PO Last administered on 10/03/16 06:15; Start 10/03/16 at 07:30 Simvastatin (Zocor) 20 mg QHS PO Last administered on 10/02/16 21:09; Start 10/02/16 at 21:00 Warfarin Sodium (Coumadin) 3 mg DAILY16 PO Last administered on 10/02/16 21:10 ; Start 10/02/16 at 19:00 Magnesium Hydroxide (Milk Of Magnesia) 1,200 mg PRN DAILY PRN PO CONSTIPATION; Start 10/02/16 at 18:45 Hydralazine HCl (Apresoline) 10 mg PRN Q6HRS PRN IVP ELEVATED BP, SEE COMMENTS ; Start 10/02/16 at 18:30 Acetaminophen (Tylenol) 650 mg PRN Q6HRS PRN PO FEVER; Start 10/02/16 at 18:30 Ondansetron HCl (Zofran) 4 mg PRN Q6HRS PRN IV NAUSEA/VOMITING; Start 10/02/16 at 18:30 Warfarin Sodium 1 each 1 each PRN DAILY PRN MC SEE COMMENTS; Start 10/02/16 at 18:30 Ceftriaxone Sodium/Sodium Chloride (Rocephin/Iv Sodium Chloride 0.9% 50ml) 50 ml @ 100 mls/hr DAILY IV Last administered on 10/03/16 09:23; Start 10/03/16 at 09:00 Enoxaparin Sodium (Lovenox 60mg Syringe) 50 mg Q12HR SQ Last administered on 09:24; Start 10/03/16 at 09:00 Active Scripts Active Reported Ferrous Sulfate 325 Mg Tablet 1 Tab PO BID Simvastatin 20 Mg Tablet 20 Mg PO QHS Pantoprazole Sodium 40 Mg Tablet.dr 40 Mg PO DAILY Nitrostat (Nitroglycerin) 0.4 Mg Tab.subl 0.4 Mg SL PRN Q5MIN Milk Of Magnesia (Magnesium Hydroxide) 2,400 Mg/10 Ml Oral.susp 1,200 Mg PO PRN DAILY Lovenox (Enoxaparin Sodium) 40 Mg/0.4 Ml Disp.syrin 40 Mg SQ DAILY Losartan Potassium 25 Mg Tablet 25 Mg PO DAILY Hydrocodone-Apap 5-325 (Hydrocodone Bit/Acetaminophen) 1 Each Tablet 1 Each PO PRN Q6HRS Duoneb 0.5 Mg-3 Mg/3 Ml Soln (Ipratropium/Albuterol Sulfate) 3 Ml Ampul.neb 3 Ml IH PRN Q6HRS Coumadin (Warfarin Sodium) 3 Mg Tablet 3 Mg PO DAILY Citalopram Hbr (Citalopram Hydrobromide) 20 Mg Tablet 20 Mg PO DAILY Bupropion Hcl Sr (Bupropion Hcl) 150 Mg Tablet.er 150 Mg PO DAILY Vitals/I & O Vital Sign - Last 24 Hours 10/02/16 10/02/16 10/02/16 10/02/16 14:14 14:22 15:01 15:31 Temp 98.7 98.7 Pulse 72 70 72 64 Resp 14 16 16 16 B/P 187/91 187/91 204/92 183/83 Pulse Ox 98 98 98 98 O2 Delivery Nasal Cannula Nasal Cannula Nasal Cannula Nasal Cannula O2 Flow Rate 2 2 2 2 10/02/16 10/02/16 10/02/16 10/02/16 16:01 16:31 17:01 17:31 Pulse 70 66 77 72 Resp 16 B/P 179/84 170/79 196/92 187/90 Pulse Ox 96 96 96 95 O2 Delivery Room Air Room Air Room Air Room Air 10/02/16 10/02/16 10/02/16 10/02/16 19:35 19:35 19:35 19:40 Temp 97.8 97.8 97.8 97.8 Pulse 99 99 Resp 18 18 B/P 164/94 164/94 Pulse Ox 87 87 O2 Delivery Room Air Nasal Cannula Nasal Cannula Room Air O2 Flow Rate 2.0 2.0 10/02/16 10/03/16 10/03/16 10/03/16 23:38 03:50 07:00 08:00 Temp 97.9 98.5 97.7 97.9 98.5 97.7 Pulse 89 73 100 Resp 16 21 20 B/P 124/63 143/70 145/75 Pulse Ox 99 93 91 O2 Delivery Nasal Cannula Room Air Room Air Room Air O2 Flow Rate 2.0 10/03/16 09:23 Pulse 100 B/P 145/75 Intake and Output 10/02/16 10/02/16 10/03/16 15:00 23:00 07:00 Intake Total 60 ml Balance 60 ml SEAN HELTON MD Oct 03, 2016 11:20
[2016-10-03] MEDS ORDERED: CLONIDINE HCL 0.1 MG TABLET PO PRN (11:30)
--- NOTE | 2016-10-03 12:29 | EKG ---
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
--- NOTE | 2016-10-03 15:09 | PDOC2 ---
NEUROLOGY CONSULT Date of Admission Date of Admission DATE: 10/03/16 TIME: 15:02 Reason for Consult Reason for Consult: Altered mental status Referring Physician Referring Physician: Dr. 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 She usually is able to communicate some and even feed herself. She gets around with a walker or a wheelchair. She was brought in from the skilled nursing with unresponsive episode after taking a shower. No convulsive activity was seen, but the patient remained obtunded for several hours. Then last night she woke up, but today she is more obtunded again. There is no history of seizure or head injury. She recently was admitted to [facility] for urinary tract infection and compression fracture. Past Medical History Cardiovascular: CAD, HTN, Hyperlipidemia Pulmonary: COPD, Pulmonary embolus CENTRAL NERVOUS SYSTEM: CVA, Dementia, TIA GI: Diverticulosis, GERD Heme/Onc: Anemia NOS, Cancer (breast) Musculoskeletal: Other (compression fracture) Renal/: UTI Past Surgical History Past Surgical History: Cataract Removal, Mastectomy, Total hip replacement Family History Family History: Cancer Social History Social History , no tobacco or alcohol, skilled nursing resident for nearly 5 years Current Medications Current Medications Current Medications Naloxone HCl (Narcan) 0.4 mg 1X ONCE IV Last administered on 10/02/16t 15:12; Start 10/02/16 at 14:45; Stop 10/02/16 at 14:46; Status DC Erythromycin (Romycin) 0.25 inch 1X ONCE OS ; Start 10/02/16 at 17:00; Stop 10/02 at 17:01; Status DC Ondansetron HCl (Zofran) 4 mg PRN Q8HRS PRN IV NAUSEA/VOMITING; Start 10/02/16 at 17:00; Stop 10/02/16 at 18:31; Status DC Fentanyl Citrate (Fentanyl 2ml Vial) 25 mcg PRN Q2HR PRN IV PAIN; Start at 17:00; Stop 10/03/16 at 16:59 Acetaminophen (Tylenol) 650 mg PRN Q4HRS PRN PO FEVER; Start 10/02/16 at 17:00; Stop 10/02/16 at 18:29; Status DC Bupropion HCl (Wellbutrin Sr) 150 mg DAILY PO Last administered on 10/03/16 09: 23; Start 10/03/16 at 09:00 Citalopram Hydrobromide (Celexa) 20 mg DAILY PO Last administered on 10/03/16 09:23; Start 10/03/16 at 09:00 Enoxaparin Sodium (Lovenox 40mg Syringe) 40 mg Q24H SQ Last administered on 10/02 21:10; Start 10/02/16 at 21:00; Stop 10/03/16 at 13:19; Status DC Acetaminophen/ Hydrocodone Bitart (Lortab 5/325) 1 tab PRN Q6HRS PRN PO PAIN; Start 10/02/16 at 18:15 Albuterol/ Ipratropium (Duoneb) 3 ml PRN Q6HRS PRN NEB SHORTNESS OF BREATH; Start 10/02/16 at 18:15 Losartan Potassium (Cozaar) 25 mg DAILY PO Last administered on 10/03/16 09:23 ; Start 10/03/16 at 09:00 Nitroglycerin (Nitrostat) 0.4 mg PRN Q5MIN SL ; Start 10/02/16 at 18:15 Pantoprazole Sodium (Protonix) 40 mg DAILYAC PO Last administered on 10/03/16 06:15; Start 10/03/16 at 07:30 Simvastatin (Zocor) 20 mg QHS PO Last administered on 10/02/16 21:09; Start 10/02/16 at 21:00 Warfarin Sodium (Coumadin) 3 mg DAILY16 PO Last administered on 10/02/16 21:10 ; Start 10/02/16 at 19:00; Stop 10/03/16 at 13:19; Status DC Magnesium Hydroxide (Milk Of Magnesia) 1,200 mg PRN DAILY PRN PO CONSTIPATION; Start 10/02/16 at 18:45 Hydralazine HCl (Apresoline) 10 mg PRN Q6HRS PRN IVP ELEVATED BP, SEE COMMENTS ; Start 10/02/16 at 18:30 Acetaminophen (Tylenol) 650 mg PRN Q6HRS PRN PO FEVER; Start 10/02/16 at 18:30 Ondansetron HCl (Zofran) 4 mg PRN Q6HRS PRN IV NAUSEA/VOMITING; Start 10/02/16 at 18:30 Warfarin Sodium 1 each 1 each PRN DAILY PRN MC SEE COMMENTS Last administered on 10/03/16 13:21; Start 10/02/16 at 18:30 Ceftriaxone Sodium/Sodium Chloride (Rocephin/Iv Sodium Chloride 0.9% 50ml) 50 ml @ 100 mls/hr DAILY IV Last administered on 10/03/16 09:23; Start 10/03/16 at 09:00 Enoxaparin Sodium (Lovenox 60mg Syringe) 50 mg Q12HR SQ Last administered on 09:24; Start 10/03/16 at 09:00 Clonidine HCl (Catapres) 0.1 mg PRN Q1HR PRN PO HYPERTENSION, SEE COMMENTS; Start 10/03/16 at 11:30 Warfarin Sodium (Coumadin) 5 mg 1X WARF ONCE PO ; Start 10/03/16 at 16:00; Stop 10/03/16 at 16:01 Active Scripts Active Reported Ferrous Sulfate 325 Mg Tablet 1 Tab PO BID Simvastatin 20 Mg Tablet 20 Mg PO QHS Pantoprazole Sodium 40 Mg Tablet.dr 40 Mg PO DAILY Nitrostat (Nitroglycerin) 0.4 Mg Tab.subl 0.4 Mg SL PRN Q5MIN Milk Of Magnesia (Magnesium Hydroxide) 2,400 Mg/10 Ml Oral.susp 1,200 Mg PO PRN DAILY Lovenox (Enoxaparin Sodium) 40 Mg/0.4 Ml Disp.syrin 40 Mg SQ DAILY Losartan Potassium 25 Mg Tablet 25 Mg PO DAILY Hydrocodone-Apap 5-325 (Hydrocodone Bit/Acetaminophen) 1 Each Tablet 1 Each PO PRN Q6HRS Duoneb 0.5 Mg-3 Mg/3 Ml Soln (Ipratropium/Albuterol Sulfate) 3 Ml Ampul.neb 3 Ml IH PRN Q6HRS Coumadin (Warfarin Sodium) 3 Mg Tablet 3 Mg PO DAILY Citalopram Hbr (Citalopram Hydrobromide) 20 Mg Tablet 20 Mg PO DAILY Bupropion Hcl Sr (Bupropion Hcl) 150 Mg Tablet.er 150 Mg PO DAILY Allergies Allergies: Coded Allergies: Oxycodone (Verified Allergy, Unknown, 08/13/13) diltiazem HCl (Verified Allergy, Unknown, 08/13/13) ROS Review of System Patient denies fevers, chills, weight loss, dyspnea, angina, abdominal pain, change in bowels, or dysuria. 14 point review of systems is negative. Physical Exam Physical Examination PHYSICAL EXAMINATION: Vital signs: see above. General appearance is normal and in no acute distress. HEENT: Normocephalic and nontraumatic. Eyes, nose, ears, and throat are unremarkable. Neck is supple. No lymphadenopathy. No bruits are heard over the carotid artery. No crepitus. NEUROLOGIC: Eyes are closed, she does not respond to voice. She squeezes her eyes shut, but I am able to examine her pupils any do react to light. There are spontaneous extraocular movements. There is no facial asymmetry. There is spastic right hemiplegia. She does move the left extremities. There is a left grasp reflex. Reflexes are 1+ with silent plantar responses. She does not cooperate with tests of coordination and sensation. Vitals VITALS Vital Signs Date Time Temp Pulse Resp B/P Pulse Ox O2 Delivery O2 Flow Rate FiO2 10/03/16 11:22 98.1 98 20 143/74 91 Room Air 98.1 10/02/16 23:38 2.0 Labs Labs Laboratory Tests Test 10/02/16 14:20 10/02/16 18:13 10/03/16 00:21 10/03/16 04:00 White Blood Count 9.0x10^3/uL (4.0-11.0) 7.7x10^3/uL (4.0-11.0) Red Blood Count 4.88x10^6/uL (3.50-5.40) 4.37x10^6/uL (3.50-5.40) Hemoglobin 15.1g/dL (12.0-15.5) 13.6g/dL (12.0-15.5) Hematocrit 46.5% (36.0-47.0) 41.5% (36.0-47.0) Mean Corpuscular Volume 95fL (79-100) 95fL (79-100) Mean Corpuscular Hemoglobin 31pg (25-35) 31pg (25-35) Mean Corpuscular Hemoglobin Concent 33g/dL (31-37) 33g/dL (31-37) Red Cell Distribution Width 14.1% (11.5-14.5) 14.1% (11.5-14.5) Platelet Count 252x10^3/uL (140-400) 246x10^3/uL (140-400) Neutrophils (%) (Auto) 79% (31-73) 76% (31-73) Lymphocytes (%) (Auto) 14% (24-48) 13% (24-48) Monocytes (%) (Auto) 6% (0-9) 9% (0-9) Eosinophils (%) (Auto) 0% (0-3) 1% (0-3) Basophils (%) (Auto) 1% (0-3) 1% (0-3) Neutrophils # (Auto) 7.1x10^3uL (1.8-7.7) 5.8x10^3uL (1.8-7.7) Lymphocytes # (Auto) 1.2x10^3/uL (1.0-4.8) 1.0x10^3/uL (1.0-4.8) Monocytes # (Auto) 0.5x10^3/uL (0.0-1.1) 0.7x10^3/uL (0.0-1.1) Eosinophils # (Auto) 0.0x10^3/uL (0.0-0.7) 0.1x10^3/uL (0.0-0.7) Basophils # (Auto) 0.0x10^3/uL (0.0-0.2) 0.0x10^3/uL (0.0-0.2) Prothrombin Time 13.2SEC (11.7-14.0) 13.7SEC (11.7-14.0) Prothromb Time International Ratio 1.1 (0.8-1.1) 1.1 (0.8-1.1) Activated Partial Thromboplast Time 30SEC (24-38) Sodium Level 139mmol/L (136-145) 142mmol/L (136-145) Potassium Level 4.7mmol/L (3.5-5.1) 3.8mmol/L (3.5-5.1) Chloride Level 102mmol/L (98-107) 104mmol/L (98-107) Carbon Dioxide Level 31mmol/L (21-32) 31mmol/L (21-32) Anion Gap 6 (6-14) 7 (6-14) Blood Urea Nitrogen 16mg/dL (7-20) 16mg/dL (7-20) Creatinine 0.7mg/dL (0.6-1.0) 0.6mg/dL (0.6-1.0) Estimated GFR (Cockcroft-Gault) 80.1 95.7 BUN/Creatinine Ratio 23 (6-20) Glucose Level 90mg/dL (70-99) 69mg/dL (70-99) Calcium Level 9.2mg/dL (8.5-10.1) 8.9mg/dL (8.5-10.1) Total Bilirubin 1.0mg/dL (0.2-1.0) Aspartate Amino Transf (AST/SGOT) 24U/L (15-37) Alanine Aminotransferase (ALT/SGPT) 17U/L (14-59) Alkaline Phosphatase 187U/L (46-116) Troponin I Quantitative 0.017ng/mL (0.000-0.055) AF-Jlp-R-Type Natriuretic Peptide 2563pg/mL (0-449) Total Protein 7.1g/dL (6.4-8.2) Albumin 2.5g/dL (3.4-5.0) Albumin/Globulin Ratio 0.5 (1.0-1.7) Salicylates Level < 2.8mg/dL (2.8-20.0) Salicylate Last Dose Date Unknown Salicylate Last Dose Time Unknown Acetaminophen Level 2.5mcg/ml (10-30) Acetaminophen Last Dose Date Unknown Acetaminophen Last Dose Time Unknown Urine Collection Type U cath Urine Color Yellow Urine Clarity Clear Urine pH 6.0 Urine Specific [place] 1.020 Urine Protein Negativemg/dL (NEG-TRACE) Urine Glucose (UA) Negativemg/dL (NEG) Urine Ketones (Stick) 15mg/dL (NEG) Urine Blood Negative (NEG) Urine Nitrite Positive (NEG) Urine Bilirubin Negative (NEG) Urine Urobilinogen Dipstick 2.0mg/dL (0.2 mg/dL) Urine Leukocyte Esterase Small (NEG) Urine RBC 0/HPF (0-2) Urine WBC 11-20/HPF (0-4) Urine Squamous Epithelial Cells Few/LPF Urine Bacteria Many/HPF (0-FEW) Urine Mucus Slight/LPF Nasal Screen MRSA (PCR) Negative (Negative) Laboratory Tests Test 10/02/16 18:13 10/03/16 00:21 10/03/16 04:00 Urine Collection Type U cath Urine Color Yellow Urine Clarity Clear Urine pH 6.0 Urine Specific [place] 1.020 Urine Protein Negativemg/dL (NEG-TRACE) Urine Glucose (UA) Negativemg/dL (NEG) Urine Ketones (Stick) 15mg/dL (NEG) Urine Blood Negative (NEG) Urine Nitrite Positive (NEG) Urine Bilirubin Negative (NEG) Urine Urobilinogen Dipstick 2.0mg/dL (0.2 mg/dL) Urine Leukocyte Esterase Small (NEG) Urine RBC 0/HPF (0-2) Urine WBC 11-20/HPF (0-4) Urine Squamous Epithelial Cells Few/LPF Urine Bacteria Many/HPF (0-FEW) Urine Mucus Slight/LPF Nasal Screen MRSA (PCR) Negative (Negative) White Blood Count 7.7x10^3/uL (4.0-11.0) Red Blood Count 4.37x10^6/uL (3.50-5.40) Hemoglobin 13.6g/dL (12.0-15.5) Hematocrit 41.5% (36.0-47.0) Mean Corpuscular Volume 95fL (79-100) Mean Corpuscular Hemoglobin 31pg (25-35) Mean Corpuscular Hemoglobin Concent 33g/dL (31-37) Red Cell Distribution Width 14.1% (11.5-14.5) Platelet Count 246x10^3/uL (140-400) Neutrophils (%) (Auto) 76% (31-73) Lymphocytes (%) (Auto) 13% (24-48) Monocytes (%) (Auto) 9% (0-9) Eosinophils (%) (Auto) 1% (0-3) Basophils (%) (Auto) 1% (0-3) Neutrophils # (Auto) 5.8x10^3uL (1.8-7.7) Lymphocytes # (Auto) 1.0x10^3/uL (1.0-4.8) Monocytes # (Auto) 0.7x10^3/uL (0.0-1.1) Eosinophils # (Auto) 0.1x10^3/uL (0.0-0.7) Basophils # (Auto) 0.0x10^3/uL (0.0-0.2) Prothrombin Time 13.7SEC (11.7-14.0) Prothromb Time International Ratio 1.1 (0.8-1.1) Sodium Level 142mmol/L (136-145) Potassium Level 3.8mmol/L (3.5-5.1) Chloride Level 104mmol/L (98-107) Carbon Dioxide Level 31mmol/L (21-32) Anion Gap 7 (6-14) Blood Urea Nitrogen 16mg/dL (7-20) Creatinine 0.6mg/dL (0.6-1.0) Estimated GFR (Cockcroft-Gault) 95.7 Glucose Level 69mg/dL (70-99) Calcium Level 8.9mg/dL (8.5-10.1) Images Images CT head: no acute abnormality MRI brain: There is no restricted diffusion to suggest acute or recent infarct. No acute intracranial hemorrhage or extra-axial fluid collection. There is generalized cerebral volume loss to a moderate degree. There is also moderate confluent white matter disease involving most of the cerebral hemisphere white matter and portions of the cerebellar white matter. The gradient images show scattered foci of hemosiderin deposition which may represent sequelae of previous hypertensive micro hemorrhages. There is no midline shift or mass effect. Arterial flow voids are maintained at the level of the skullbase. Globes orbits are within normal limits. Paranasal sinuses and mastoid air cells are clear. There are areas of encephalomalacia in the left frontal lobe and left parietal occipital lobes from old infarct. Impression: - Negative for acute or recent infarct. No acute intracranial abnormality. - Moderate cerebral volume loss and white matter disease. There are also scattered foci of hemosiderin deposition. This constellation of findings could reflect sequelae of longstanding hypertension. Cerebral amyloid disease is a less likely alternative. - Old left frontal lobe and left parietal occipital lobe infarcts. Assessment/Plan Assessment/Plan Impression: Prior left hemispheric stroke leaving the patient with a aphasia, right hemiplegia, multi-infarct dementia picture. Acute change may be metabolic although there is no obvious abnormality. She may have had a seizure. No evidence of acute stroke. Recommendations: Electroencephalogram Additional laboratory studies Patient is DO NOT RESUSCITATE I discussed with the patient's daughters. Thank you for letting me help with the patient's care. BRANDON DEL TORO MD Oct 03, 2016 15:09
[2016-10-03] MEDS ORDERED: WARFARIN 5 MG TABLET. PO ONE (16:00)
[2016-10-03] MEDS: SIMVASTATIN 20 MG TABLET PO SCH (20:40)
[2016-10-04 03:00] VITALS: BP 150/74
[2016-10-04 07:20] LABS: INR 1.5 (0.8-1.1)
[2016-10-04 07:30] VITALS: BP 167/71
[2016-10-04] MEDS: PANTOPRAZOLE 40 MG TABLET.DR. PO SCH (10:17)
[2016-10-04] MEDS: CITALOPRAM 20 MG TABLET. PO SCH (10:17)
[2016-10-04] MEDS: buPROPion SR 150 MG TABLET.SA PO SCH (10:17)
[2016-10-04] MEDS: LOSARTAN POTASSIUM 25 MG TABLET. PO SCH (10:17)
[2016-10-04 10:28] LABS: FOLATE 8.17 ng/ml (3.2-20.0)
[2016-10-04 11:05] VITALS: BP 141/80
[2016-10-04] MEDS: CEFTRIAXONE SODIUM 1 GM in IV NORMAL SALINE 50ML 50 ML IV SCH (12:28)
--- NOTE | 2016-10-04 14:04 | PDOC ---
PROGRESS NOTES Chief Complaint Chief Complaint cc: ams 1. AMS with unresponsiveness, 2. Baseline mild dementia 3. SNF resident 4. h/o CAD WITH PCI 5. HTN 6. HLD 7. BCa post sx 8. UTI 9. h/o stroke with right side hemiparesis plan continue Rocephin follow UCX PT/OT on Warfarin, unclear, Pharmacy to dose Coumadin, IRN 2-3. SW consult. EEG today. History of Present Illness History of Present Illness getting EEG no fever knows where she is Vitals Vitals Vital Signs Date Time Temp Pulse Resp B/P Pulse Ox O2 Delivery O2 Flow Rate FiO2 10/04/16 11:05 97.9 88 20 141/80 100 Room Air 97.9 Physical Exam General: Alert, Other (oriented 2) Heart: Normal S1, Normal S2 Lungs: Wheezing, Other Labs LABS Laboratory Tests Test 10/04/16 06:25 10/04/16 06:35 Erythrocyte Sedimentation Rate 35 (0-25) Prothrombin Time 17.0SEC (11.7-14.0) Prothromb Time International Ratio 1.5 (0.8-1.1) Ammonia 13mcmol/L (11-34) Thyroid Stimulating Hormone (TSH) 1.866uIU/mL (0.358-3.74) Vitamin B12 Level 380pg/mL (247-911) Serum Folate 8.17ng/ml (3.2-20.0) Assessment and Plan Assessmemt and Plan Problems Medical Problems: (1) Altered mental status Status: Acute (2) Decreased level of consciousness Status: Acute (3) Essential hypertension Status: Acute Problems: Comment Review of Relevant I have reviewed the following items prince (where applicable) has been applied. Labs Laboratory Tests Test 10/02/16 14:20 10/02/16 18:13 10/03/16 00:21 10/03/16 04:00 White Blood Count 9.0x10^3/uL (4.0-11.0) 7.7x10^3/uL (4.0-11.0) Red Blood Count 4.88x10^6/uL (3.50-5.40) 4.37x10^6/uL (3.50-5.40) Hemoglobin 15.1g/dL (12.0-15.5) 13.6g/dL (12.0-15.5) Hematocrit 46.5% (36.0-47.0) 41.5% (36.0-47.0) Mean Corpuscular Volume 95fL (79-100) 95fL (79-100) Mean Corpuscular Hemoglobin 31pg (25-35) 31pg (25-35) Mean Corpuscular Hemoglobin Concent 33g/dL (31-37) 33g/dL (31-37) Red Cell Distribution Width 14.1% (11.5-14.5) 14.1% (11.5-14.5) Platelet Count 252x10^3/uL (140-400) 246x10^3/uL (140-400) Neutrophils (%) (Auto) 79% (31-73) 76% (31-73) Lymphocytes (%) (Auto) 14% (24-48) 13% (24-48) Monocytes (%) (Auto) 6% (0-9) 9% (0-9) Eosinophils (%) (Auto) 0% (0-3) 1% (0-3) Basophils (%) (Auto) 1% (0-3) 1% (0-3) Neutrophils # (Auto) 7.1x10^3uL (1.8-7.7) 5.8x10^3uL (1.8-7.7) Lymphocytes # (Auto) 1.2x10^3/uL (1.0-4.8) 1.0x10^3/uL (1.0-4.8) Monocytes # (Auto) 0.5x10^3/uL (0.0-1.1) 0.7x10^3/uL (0.0-1.1) Eosinophils # (Auto) 0.0x10^3/uL (0.0-0.7) 0.1x10^3/uL (0.0-0.7) Basophils # (Auto) 0.0x10^3/uL (0.0-0.2) 0.0x10^3/uL (0.0-0.2) Prothrombin Time 13.2SEC (11.7-14.0) 13.7SEC (11.7-14.0) Prothromb Time International Ratio 1.1 (0.8-1.1) 1.1 (0.8-1.1) Activated Partial Thromboplast Time 30SEC (24-38) Sodium Level 139mmol/L (136-145) 142mmol/L (136-145) Potassium Level 4.7mmol/L (3.5-5.1) 3.8mmol/L (3.5-5.1) Chloride Level 102mmol/L (98-107) 104mmol/L (98-107) Carbon Dioxide Level 31mmol/L (21-32) 31mmol/L (21-32) Anion Gap 6 (6-14) 7 (6-14) Blood Urea Nitrogen 16mg/dL (7-20) 16mg/dL (7-20) Creatinine 0.7mg/dL (0.6-1.0) 0.6mg/dL (0.6-1.0) Estimated GFR (Cockcroft-Gault) 80.1 95.7 BUN/Creatinine Ratio 23 (6-20) Glucose Level 90mg/dL (70-99) 69mg/dL (70-99) Calcium Level 9.2mg/dL (8.5-10.1) 8.9mg/dL (8.5-10.1) Total Bilirubin 1.0mg/dL (0.2-1.0) Aspartate Amino Transf (AST/SGOT) 24U/L (15-37) Alanine Aminotransferase (ALT/SGPT) 17U/L (14-59) Alkaline Phosphatase 187U/L (46-116) Troponin I Quantitative 0.017ng/mL (0.000-0.055) GV-Dck-U-Type Natriuretic Peptide 2563pg/mL (0-449) Total Protein 7.1g/dL (6.4-8.2) Albumin 2.5g/dL (3.4-5.0) Albumin/Globulin Ratio 0.5 (1.0-1.7) Salicylates Level < 2.8mg/dL (2.8-20.0) Salicylate Last Dose Date Unknown Salicylate Last Dose Time Unknown Acetaminophen Level 2.5mcg/ml (10-30) Acetaminophen Last Dose Date Unknown Acetaminophen Last Dose Time Unknown Urine Collection Type U cath Urine Color Yellow Urine Clarity Clear Urine pH 6.0 Urine Specific [place] 1.020 Urine Protein Negativemg/dL (NEG-TRACE) Urine Glucose (UA) Negativemg/dL (NEG) Urine Ketones (Stick) 15mg/dL (NEG) Urine Blood Negative (NEG) Urine Nitrite Positive (NEG) Urine Bilirubin Negative (NEG) Urine Urobilinogen Dipstick 2.0mg/dL (0.2 mg/dL) Urine Leukocyte Esterase Small (NEG) Urine RBC 0/HPF (0-2) Urine WBC 11-20/HPF (0-4) Urine Squamous Epithelial Cells Few/LPF Urine Bacteria Many/HPF (0-FEW) Urine Mucus Slight/LPF Nasal Screen MRSA (PCR) Negative (Negative) Test 10/04/16 06:25 10/04/16 06:35 Erythrocyte Sedimentation Rate 35 (0-25) Prothrombin Time 17.0SEC (11.7-14.0) Prothromb Time International Ratio 1.5 (0.8-1.1) Ammonia 13mcmol/L (11-34) Thyroid Stimulating Hormone (TSH) 1.866uIU/mL (0.358-3.74) Vitamin B12 Level 380pg/mL (247-911) Serum Folate 8.17ng/ml (3.2-20.0) Laboratory Tests Test 10/04/16 06:25 10/04/16 06:35 Erythrocyte Sedimentation Rate 35 (0-25) Prothrombin Time 17.0SEC (11.7-14.0) Prothromb Time International Ratio 1.5 (0.8-1.1) Ammonia 13mcmol/L (11-34) Thyroid Stimulating Hormone (TSH) 1.866uIU/mL (0.358-3.74) Vitamin B12 Level 380pg/mL (247-911) Serum Folate 8.17ng/ml (3.2-20.0) Microbiology 10/02/16 Urine Culture - Preliminary, Resulted 10/02/16 Urine Culture Result 1 (TONO) - Preliminary, Resulted Medications Current Medications Naloxone HCl (Narcan) 0.4 mg 1X ONCE IV Last administered on 10/02/16t 15:12; Start 10/02/16 at 14:45; Stop 10/02/16 at 14:46; Status DC Erythromycin (Romycin) 0.25 inch 1X ONCE OS ; Start 10/02/16 at 17:00; Stop 10/02 at 17:01; Status DC Ondansetron HCl (Zofran) 4 mg PRN Q8HRS PRN IV NAUSEA/VOMITING; Start 10/02/16 at 17:00; Stop 10/02/16 at 18:31; Status DC Fentanyl Citrate (Fentanyl 2ml Vial) 25 mcg PRN Q2HR PRN IV PAIN; Start at 17:00; Stop 10/03/16 at 16:59; Status DC Acetaminophen (Tylenol) 650 mg PRN Q4HRS PRN PO FEVER; Start 10/02/16 at 17:00; Stop 10/02/16 at 18:29; Status DC Bupropion HCl (Wellbutrin Sr) 150 mg DAILY PO Last administered on 10/04/16 10 :17; Start 10/03/16 at 09:00 Citalopram Hydrobromide (Celexa) 20 mg DAILY PO Last administered on 10/04/16 10:17; Start 10/03/16 at 09:00 Enoxaparin Sodium (Lovenox 40mg Syringe) 40 mg Q24H SQ Last administered on 10/02 21:10; Start 10/02/16 at 21:00; Stop 10/03/16 at 13:19; Status DC Acetaminophen/ Hydrocodone Bitart (Lortab 5/325) 1 tab PRN Q6HRS PRN PO PAIN; Start 10/02/16 at 18:15 Albuterol/ Ipratropium (Duoneb) 3 ml PRN Q6HRS PRN NEB SHORTNESS OF BREATH; Start 10/02/16 at 18:15 Losartan Potassium (Cozaar) 25 mg DAILY PO Last administered on 10/04/16 10:17 ; Start 10/03/16 at 09:00 Nitroglycerin (Nitrostat) 0.4 mg PRN Q5MIN SL ; Start 10/02/16 at 18:15 Pantoprazole Sodium (Protonix) 40 mg DAILYAC PO Last administered on 10/04/16 10:17; Start 10/03/16 at 07:30 Simvastatin (Zocor) 20 mg QHS PO Last administered on 10/03/16 20:40; Start 10/02/16 at 21:00 Warfarin Sodium (Coumadin) 3 mg DAILY16 PO Last administered on 10/02/16 21:10 ; Start 10/02/16 at 19:00; Stop 10/03/16 at 13:19; Status DC Magnesium Hydroxide (Milk Of Magnesia) 1,200 mg PRN DAILY PRN PO CONSTIPATION; Start 10/02/16 at 18:45 Hydralazine HCl (Apresoline) 10 mg PRN Q6HRS PRN IVP ELEVATED BP, SEE COMMENTS ; Start 10/02/16 at 18:30 Acetaminophen (Tylenol) 650 mg PRN Q6HRS PRN PO FEVER; Start 10/02/16 at 18:30 Ondansetron HCl (Zofran) 4 mg PRN Q6HRS PRN IV NAUSEA/VOMITING; Start 10/02/16 at 18:30 Warfarin Sodium 1 each 1 each PRN DAILY PRN MC SEE COMMENTS Last administered on 10/04/16 10:13; Start 10/02/16 at 18:30 Ceftriaxone Sodium/Sodium Chloride (Rocephin/Iv Sodium Chloride 0.9% 50ml) 50 ml @ 100 mls/hr DAILY IV Last administered on 10/04/16 12:28; Start 10/03/16 at 09:00 Enoxaparin Sodium (Lovenox 60mg Syringe) 50 mg Q12HR SQ Last administered on 10:16; Start 10/03/16 at 09:00 Clonidine HCl (Catapres) 0.1 mg PRN Q1HR PRN PO HYPERTENSION, SEE COMMENTS; Start 10/03/16 at 11:30 Warfarin Sodium (Coumadin) 5 mg 1X WARF ONCE PO Last administered on 10/03/16 16:29; Start 10/03/16 at 16:00; Stop 10/03/16 at 16:01; Status DC Warfarin Sodium (Coumadin) 4 mg 1X WARF ONCE PO ; Start 10/04/16 at 16:00; Stop 10/04/16 at 16:01 Active Scripts Active Reported Ferrous Sulfate 325 Mg Tablet 1 Tab PO BID Simvastatin 20 Mg Tablet 20 Mg PO QHS Pantoprazole Sodium 40 Mg Tablet.dr 40 Mg PO DAILY Nitrostat (Nitroglycerin) 0.4 Mg Tab.subl 0.4 Mg SL PRN Q5MIN Milk Of Magnesia (Magnesium Hydroxide) 2,400 Mg/10 Ml Oral.susp 1,200 Mg PO PRN DAILY Lovenox (Enoxaparin Sodium) 40 Mg/0.4 Ml Disp.syrin 40 Mg SQ DAILY Losartan Potassium 25 Mg Tablet 25 Mg PO DAILY Hydrocodone-Apap 5-325 (Hydrocodone Bit/Acetaminophen) 1 Each Tablet 1 Each PO PRN Q6HRS Duoneb 0.5 Mg-3 Mg/3 Ml Soln (Ipratropium/Albuterol Sulfate) 3 Ml Ampul.neb 3 Ml IH PRN Q6HRS Coumadin (Warfarin Sodium) 3 Mg Tablet 3 Mg PO DAILY Citalopram Hbr (Citalopram Hydrobromide) 20 Mg Tablet 20 Mg PO DAILY Bupropion Hcl Sr (Bupropion Hcl) 150 Mg Tablet.er 150 Mg PO DAILY Vitals/I & O Vital Sign - Last 24 Hours 10/03/16 10/03/16 10/03/16 10/03/16 15:25 17:53 19:00 20:00 Temp 98.4 98.9 98.3 98.4 98.9 98.3 Pulse 80 82 94 Resp 20 17 B/P 145/74 142/65 153/69 Pulse Ox 91 90 92 O2 Delivery Room Air Room Air Room Air Room Air 10/03/16 10/04/16 10/04/16 10/04/16 23:00 03:00 07:30 08:00 Temp 98.1 98.5 98.1 98.1 98.5 98.1 Pulse 88 64 71 Resp 18 17 20 B/P 137/71 150/74 167/71 Pulse Ox 92 91 91 O2 Delivery Room Air Room Air Room Air Room Air 10/04/16 10/04/16 10:17 11:05 Temp 97.9 97.9 Pulse 71 88 Resp 20 B/P 167/71 141/80 Pulse Ox 100 O2 Delivery Room Air Intake and Output 10/03/16 10/03/16 10/04/16 15:00 23:00 07:00 Intake Total 100 ml 300 ml Balance 100 ml 300 ml JOSE DALY MD Oct 04, 2016 14:04
[2016-10-04] MEDS ORDERED: WARFARIN 4 MG TABLET. PO ONE (16:00)
--- NOTE | 2016-10-04 19:47 | PDOC ---
PROGRESS NOTES Assessment Assessment IMPRESSION: Metabolic encephalopathy. Hypertensive urgency, BP 204/92 mmHg. 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 CAD CT HTN HLD COPD Compression fracture. No evidence of acute CVA this time. RECOMMENDATIONS/PLAN: She has been on Coumadin. Continue Zocor HS. BP control. Treat medical diseases. OT/PT. History of Present Illness History of Present Illness The patient is an 80-year-old right-handed female penitentiary resident who has a history of stroke with right hemiparesis and a aphasia. She usually is able to communicate some and even feed herself. She gets around with a walker or a wheelchair. She was [facility] in from the [facility] with unresponsive episode after taking a shower. No convulsive activity was seen, but the patient remained obtunded for several hours. Then last night she woke up, but today she is more obtunded again. There is no history of seizure or head injury. She recently was admitted to [facility] for urinary tract infection and compression fracture. Past Medical History Cardiovascular: CAD, HTN, Hyperlipidemia Pulmonary: COPD, Pulmonary embolus CENTRAL NERVOUS SYSTEM: CVA, Dementia, TIA GI: Diverticulosis, GERD Heme/Onc: Anemia NOS, Cancer (breast) Musculoskeletal: Other (compression fracture) Renal/: UTI Past Surgical History Past Surgical History: Cataract Removal, Mastectomy, Total hip replacement Family History Family History: Cancer Social History Social History , no tobacco or alcohol, penitentiary resident for nearly 5 years ALLERGY: Reviewed. MEDICATIONS: Refer to MAR REVIEW OF SYSTEMS: Refer to PMX and PSX. PHYSICAL EXAMINATION: General appearance in no acute distress. HEENT: Normocephalic and nontraumatic. Eyes, nose, ears, and throat are unremarkable. Hearing decrease. Neck is supple. No lymphadenopathy. No Crepitus. Cardiovascular: S1, S2, regular rate and rhythm. Pulmonary: Clear to auscultation bilaterally. Abdomen: Bowel sounds are positive. Abdomen is soft, nontender, and nondistended. Extremities: No rash, lesions, or edema. No restriction of range of motion NEUROLOGICAL EXAMINATION: Awake. Partially oriented to place and person. PERRL. EOMI. CN: no focal findings. Muscle tone: within normal. Muscle strength: 4+ DTR: 2- Plantar reflex: Neutral response bilaterally Gait: not examined in bed. Sensory exam: no abnormal findings. No cerebellar signs elicited. Objective Objective Vital Signs Date Time Temp Pulse Resp B/P Pulse Ox O2 Delivery O2 Flow Rate FiO2 10/04/16 11:05 97.9 88 20 141/80 100 Room Air 97.9 Intake and Output 10/04/16 07:00 Intake Total 400 ml Balance 400 ml Intake Oral 400 ml # Voids 3 Vitals Signs Vitals VS - Last 72 Hours, by Label Date Time Temp Pulse Resp B/P Pulse Ox O2 Delivery O2 Flow Rate FiO2 10/04/16 11:05 97.9 88 20 141/80 100 Room Air 97.9 10/04/16 10:17 71 167/71 10/04/16 08:00 Room Air 10/04/16 07:30 98.1 71 20 167/71 91 Room Air 98.1 10/04/16 03:00 98.5 64 17 150/74 91 Room Air 98.5 10/03/16 23:00 98.1 88 18 137/71 92 Room Air 98.1 10/03/16 20:00 Room Air 10/03/16 19:00 98.3 94 17 153/69 92 Room Air 98.3 10/03/16 17:53 98.9 82 20 142/65 90 Room Air 98.9 10/03/16 15:25 98.4 80 20 145/74 91 Room Air 98.4 10/03/16 11:22 98.1 98 20 143/74 91 Room Air 98.1 10/03/16 09:23 100 145/75 10/03/16 08:00 Room Air 10/03/16 07:00 97.7 100 20 145/75 91 Room Air 97.7 Laboratory Laboratory Laboratory Tests Test 10/04/16 06:25 10/04/16 06:35 Erythrocyte Sedimentation Rate 35 (0-25) Prothrombin Time 17.0SEC (11.7-14.0) Prothromb Time International Ratio 1.5 (0.8-1.1) Ammonia 13mcmol/L (11-34) Thyroid Stimulating Hormone (TSH) 1.866uIU/mL (0.358-3.74) Vitamin B12 Level 380pg/mL (247-911) Serum Folate 8.17ng/ml (3.2-20.0) Microbiology 10/02/16 Urine Culture - Final, Complete 10/02/16 Urine Culture Result 1 (TONO) - Final, Complete 10/02/16 Antimicrobic Susceptibility - Final, Complete Medication Medications Current Medications Warfarin Sodium (Coumadin) 4 mg 1X WARF ONCE PO Last administered on t 16:56; Start 10/04/16 at 16:00; Stop 10/04/16 at 16:01; Status DC Comment Review of Relevant I have reviewed the following items prince (where applicable) has been applied. MATEUSZ GIBSON MD Oct 04, 2016 19:47
[2016-10-04 19:56] VITALS: BP 118/79
[2016-10-04] MEDS: SIMVASTATIN 20 MG TABLET PO SCH (21:49)
[2016-10-04 23:51] VITALS: BP 147/72
[2016-10-05 03:26] VITALS: BP 148/73
[2016-10-05 07:00] VITALS: BP 160/69
[2016-10-05] MEDS: CEFTRIAXONE SODIUM 1 GM in IV NORMAL SALINE 50ML 50 ML IV SCH (08:55)
[2016-10-05] MEDS: buPROPion SR 150 MG TABLET.SA PO SCH (08:55)
[2016-10-05] MEDS: CITALOPRAM 20 MG TABLET. PO SCH (08:55)
[2016-10-05] MEDS: PANTOPRAZOLE 40 MG TABLET.DR. PO SCH (08:55)
[2016-10-05] MEDS: LOSARTAN POTASSIUM 25 MG TABLET. PO SCH (08:55)
[2016-10-05 10:49] VITALS: BP 148/62
[2016-10-05 15:00] VITALS: BP 140/70
--- NOTE | 2016-10-05 16:28 | PDOC ---
PROGRESS NOTES Assessment Assessment Metabolic encephalopathy. Hypertensive urgency, BP 204/92 mmHg. 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 CAD [place] HTN HLD COPD Compression fracture. No evidence of acute CVA this time. RECOMMENDATIONS/PLAN: She has been on Coumadin. Continue Zocor HS. BP control. Treat medical diseases. OT/PT. FU with PCP. History of Present Illness The patient is an 80-year-old right-handed female [facility] resident who has a history of stroke with right hemiparesis and a aphasia. She usually is able to communicate some and even feed herself. She gets around with a walker or a wheelchair. She was brought in from the [facility] with unresponsive episode after taking a shower. No convulsive activity was seen, but the patient remained obtunded for several hours. Then last night she woke up, but today she is more obtunded again. There is no history of seizure or head injury. She recently was admitted to [facility] for urinary tract infection and compression fracture. Past Medical History Cardiovascular: CAD, HTN, Hyperlipidemia Pulmonary: COPD, Pulmonary embolus CENTRAL NERVOUS SYSTEM: CVA, Dementia, TIA GI: Diverticulosis, GERD Heme/Onc: Anemia NOS, Cancer (breast) Musculoskeletal: Other (compression fracture) Renal/: UTI Past Surgical History Cataract Removal, Mastectomy, Total hip replacement Family History Cancer Social History , no tobacco or alcohol, [facility]dc resident for nearly 5 years ALLERGY: Reviewed. MEDICATIONS: Refer to MAR REVIEW OF SYSTEMS: Refer to PMX and PSX. PHYSICAL EXAMINATION: General appearance in no acute distress. HEENT: Normocephalic and nontraumatic. Eyes, nose, ears, and throat are unremarkable. Hearing decrease. Neck is supple. No lymphadenopathy. No Crepitus. Cardiovascular: S1, S2, regular rate and rhythm. Pulmonary: Clear to auscultation bilaterally. Abdomen: Bowel sounds are positive. Abdomen is soft, nontender, and nondistended. Extremities: No rash, lesions, or edema. No restriction of range of motion NEUROLOGICAL EXAMINATION: Awake. Partially oriented to place and person. PERRL. EOMI. CN: no focal findings. Muscle tone: within normal. Muscle strength: 4+ DTR: 2- Plantar reflex: Neutral response bilaterally Gait: not examined in bed. Sensory exam: no abnormal findings. No cerebellar signs elicited. Objective Objective Vital Signs Date Time Temp Pulse Resp B/P Pulse Ox O2 Delivery O2 Flow Rate FiO2 10/05/16 15:00 98.3 72 18 140/70 91 Room Air 98.3 10/05/16 11:28 2.0 Intake and Output 10/05/16 07:00 Intake Total 1380 ml Balance 1380 ml Intake Oral 1380 ml # Voids 6 Vitals Signs Vitals VS - Last 72 Hours, by Label Date Time Temp Pulse Resp B/P Pulse Ox O2 Delivery O2 Flow Rate FiO2 10/05/16 15:00 98.3 72 18 140/70 91 Room Air 98.3 10/05/16 11:28 Nasal Cannula 2.0 10/05/16 10:49 98.2 79 18 148/62 96 Nasal Cannula 2.0 98.2 10/05/16 08:55 76 160/69 10/05/16 08:00 Nasal Cannula 2.0 10/05/16 07:53 94 Nasal Cannula 2.0 10/05/16 07:00 98.2 76 18 160/69 88 Room Air 98.2 10/05/16 03:26 98.5 77 16 148/73 90 Room Air 98.5 10/04/16 23:51 98.0 78 16 147/72 89 Room Air 98.0 10/04/16 20:00 Room Air 2.0 10/04/16 19:56 98.1 91 16 118/79 92 Room Air 98.1 10/04/16 11:05 97.9 88 20 141/80 100 Room Air 97.9 10/04/16 10:17 71 167/71 10/04/16 08:00 Room Air 10/04/16 07:30 98.1 71 20 167/71 91 Room Air 98.1 Laboratory Laboratory Microbiology 10/02/16 Urine Culture - Final, Complete 10/02/16 Urine Culture Result 1 (TONO) - Final, Complete 10/02/16 Antimicrobic Susceptibility - Final, Complete Medication Medications Current Medications Warfarin Sodium (Coumadin) 4 mg 1X WARF ONCE PO ; Start 10/05/16 at 17:00; Stop 10/05/16 at 17:01 Comment Review of Relevant I have reviewed the following items prince (where applicable) has been applied. MATEUSZ GIBSON MD Oct 05, 2016 16:28
[2016-10-05] MEDS ORDERED: WARFARIN 4 MG TABLET. PO ONE (17:00)
--- NOTE | 2016-10-06 18:30 | EEG ---
DATE OF SERVICE: 10/04/2016 EEG NUMBER: ____. OBJECTIVE: This is an 80-year-old female patient with a history of episodes of unresponsiveness. EEG was requested to evaluate cerebral activity and help rule out seizure. METHODS: Twenty electrodes were applied according to the international 10-20 electrode placement system. EKG monitoring, hyperventilation, intermittent photic stimulation, monopolar and bipolar montages are routinely utilized. The record was obtained on a digital system with video monitoring. FINDINGS: 1. Background: The patient was recorded in the awake, drowsy and asleep states. The overall background amplitude is 10-20 microvolts, posterior dominant rhythm of 6-8 Hz is observed. 2. Abnormalities: No specific epileptiform discharge or electrographic seizure is seen. No diffuse slowing. 3. Activation: Hyperventilation was not performed because the patient was unable to perform the technique. Intermittent photic stimulation was performed with photic driving. IMPRESSION: This EEG falls into the abnormal study for the awake, drowsy, and sleep states. The posterior dominant rhythm of 6-8 Hz is slow for age. No focal, lateralizing, specific epileptiform discharge, or electrographic seizure is seen. MATEUSZ GIBSON MD DR: Gene JOB#: [id number] / [id number]
== END 2016-10-05 18:00 | DRG 689 ==
LOC: ER 14:14 → 2 NORTH 16:25 → 6 SOUTH 10-03 17:26
PROVIDERS: ADMIT Internal Medicine; ATTEND Internal Medicine
DX: N39.0 Urinary tract infection, site not specified (principal); G93.41 Metabolic encephalopathy; E44.1 Mild protein-calorie malnutrition; Z68.1 Body mass index [BMI] 19.9 or less, adult; I69.351 Hemiplegia and hemiparesis following cerebral infarction affecting right dominant side; F03.90 Unspecified dementia, unspecified severity, without behavioral disturbance, psychotic disturbance, mood disturbance, and anxiety; E78.00 Pure hypercholesterolemia, unspecified; E78.5 Hyperlipidemia, unspecified; I10 Essential (primary) hypertension; Z96.649 Presence of unspecified artificial hip joint; I16.0 Hypertensive urgency; I25.10 Atherosclerotic heart disease of native coronary artery without angina pectoris; J44.9 Chronic obstructive pulmonary disease, unspecified; K21.9 Gastro-esophageal reflux disease without esophagitis; Z90.11 Acquired absence of right breast and nipple; Z88.8 Allergy status to other drugs, medicaments and biological substances; Z85.3 Personal history of malignant neoplasm of breast; Z86.711 Personal history of pulmonary embolism; I69.320 Aphasia following cerebral infarction; Z79.899 Other long term (current) drug therapy
CPT/HCPCS: 36415; 70450; 70551; 71010; 80048; 80053; 81001; 82140; 82607; 82746; 83880; 84443; 84484; 85027; 85610; 85651; 85730; 87086; 87186; 87641; 93005; 94250; 95816; 96374; G6038; J0696; J1650; J2310; 80196; 92610; 97530; 99285-25

== ENCOUNTER 2016-10-16 11:15 | Inpatient (IN) | payer MEDICARE, OTHER ==
[~2016-10-16] VITALS: Ht 165.1 cm; Wt 50.8 kg
[~2016-10-16 11:15] MED LIST changes: +FERR-26 PO
[2016-10-16 11:48] LABS: BARBITURATES NEG (NEG); BENZODIAZEPINES NEG (NEG); CANNABINOIDS NEG (NEG); COCAINE NEG (NEG); METHADONE NEG (NEG); OPIATES POS (NEG); PHENCYCLIDINE NEG (NEG)
[2016-10-16 11:50] LABS: ETHANOL, URINE NEG (NEG)
--- NOTE | 2016-10-16 12:08 | RAD ---
CT scan of the head without contrast 10/16/2016 Clinical History: Altered mental status. Technique: Unenhanced, contiguous, 5 mm axial sections were obtained through the head. One or more of the following individualized dose reduction techniques were utilized for this study: 1. Automated exposure control. 2. Adjustment of the mA and/or kV according to patient size. 3. Use of iterative reconstruction technique. Findings: Comparison study is dated 10/02/2016. There is generalized parenchymal atrophy. Extensive areas of decreased attenuation are seen within the periventricular and subcortical white matter of both cerebral hemispheres consistent with areas of small vessel ischemic disease. Areas of encephalomalacia are seen involving the left frontal and left parietal lobes No acute parenchymal abnormality is seen. No extra-axial fluid collection is noted. Impression: No acute intracranial abnormality is seen.
--- NOTE | 2016-10-16 12:10 | EKG ---
[facility] [address] [place] [address] Test Date: 2016-10-16 Test Time: 11:22:15 Pat Name: BILLIE ALEJANDRO Department: Room: Gender: F Completion Manager: : [id number] Requested By: YUNG GUPTA Order Number: [id number] Reading MD: Marilu Lee Measurements Intervals [place] Rate: 62 P: 66 WV: 200 QRS: -56 QRSD: 112 T: -49 QT: 440 QTc: 449 Interpretive Statements SINUS RHYTHM LEFT ANTERIOR FASCICULAR BLOCK LVH WITH REPOLARIZATION ABNORMALITY Electronically Signed On 10-17-2016 17:35:09 CDT by Marilu Lee
--- NOTE | 2016-10-16 12:37 | PHYS DOC ---
Past Medical History Past Medical History: Anemia, Angina, CAD, Cancer, COPD, Diverticulosis, High Cholesterol, Hip Fracture, Hypertension, [place] Additional Past Medical Histor: FEMUR FX, PAIN, PE, DEPRESSIVE DISORDER, HEARTBURN,CATARACT,EDEMA,INSOMNIA Past Surgical History: Cancer Surgery, Hip Replacement Additional Past Surgical Histo: RIGHT MASTECTOMY Alcohol Use: None Drug Use: None Adult General Chief Complaint Chief Complaint: decreased mental status HPI HPI 80-year-old female presenting to the emergency department today after having a "unresponsive" episode reported by prison staff. EMS was called who brought the patient to our emergency department. Upon arrival to our emergency department today the patient opens her eyes spontaneously. She follows simple commands which is reported by her prison staff as baseline for the patient. As chronic history of CVA and hemiplegic from this with spasticity. Onset today. Location generalized. Duration brief. Intermittent. Upon arrival of the patient's daughter more information was able to be obtained. Apparently the daughter reports the patient has a history of UTIs over the past 4 weeks been seen twice and treated twice for urinary tract infections. She reports that last night her mother was less expressive and alert than normal. She asked that a urinary analysis be obtained. This morning her mother was harder to wake up which is common for the patient's urinary tract infections. She was subsequently transferred here for further workup. Review of systems is negative for chest pain shortness of breath abdominal pain nausea vomiting fevers chills. All other review of systems is negative unless otherwise noted in history of present illness. Review of Systems Review of Systems SEE ABOVE. Allergies Allergies Allergies Coded Allergies Type Severity Reaction Last Updated Verified Oxycodone Allergy Unknown 08/13/13 Yes diltiazem HCl Allergy Unknown 08/13/13 Yes Physical Exam Physical Exam Constitutional: Well developed, well nourished, no acute distress, non-toxic appearance. HENT: Normocephalic, atraumatic, bilateral external ears normal, oropharynx moist, no oral exudates, nose normal. Eyes: PERRLA, EOMI, conjunctiva normal, no discharge. Neck: Normal range of motion, no tenderness, supple, no stridor. [] Cardiovascular:Heart rate regular rhythm, no murmur Lungs & Thorax: Bilateral breath sounds clear to auscultation Abdomen: Bowel sounds normal, soft, no tenderness, no masses, no pulsatile masses. [] Skin: Warm, dry, no erythema, no rash. Back: No tenderness, no CVA tenderness. [] Extremities: No tenderness, no cyanosis, no clubbing, ROM intact, no edema. Neurologic: Mental status: Awake opens eyes spontaneously. answers questions from daughter appropriately Cranial nerves: Extraocular movements intact, eyebrows rashmi bilaterally smile symmetric, uvula elevation, shoulder shrug intact, tongue protrusion normal Strength: Patient has chronic contractures on the right from old cva with 4/5 strength in the left. Psychologic: Affect normal, judgement normal, mood normal. [] Current Patient Data Vital Signs Vital Signs Date Time Temp Pulse Resp B/P Pulse Ox O2 Delivery O2 Flow Rate FiO2 10/16/16 11:15 97.7 63 24 179/84 100 Nasal Cannula 3 97.7 Lab Values Laboratory Tests Test 10/16/16 11:30 10/16/16 11:36 10/16/16 12:20 10/16/16 13:00 Urine Collection Type U cath Urine Color Yellow Urine Clarity Cloudy Urine pH 7.5 Urine Specific [place] 1.015 Urine Protein Negativemg/dL (NEG-TRACE) Urine Glucose (UA) Negativemg/dL (NEG) Urine Ketones (Stick) Tracemg/dL (NEG) Urine Blood Negative (NEG) Urine Nitrite Negative (NEG) Urine Bilirubin Negative (NEG) Urine Urobilinogen Dipstick 0.2mg/dL (0.2 mg/dL) Urine Leukocyte Esterase Trace (NEG) Urine RBC 0/HPF (0-2) Urine WBC Occ/HPF (0-4) Urine Squamous Epithelial Cells Mod/LPF Urine Transitional Epithelial Cells Occ/LPF Urine Bacteria Many/HPF (0-FEW) Urine Mucus Slight/LPF Urine Opiates Screen Pos (NEG) Urine Methadone Screen Neg (NEG) Urine Barbiturates Neg (NEG) Urine Phencyclidine Screen Neg (NEG) Urine Amphetamine/Methamphetamine Neg (NEG) Urine Benzodiazepines Screen Neg (NEG) Urine Cocaine Screen Neg (NEG) Urine Cannabinoids Screen Neg (NEG) Urine Ethyl Alcohol Neg (NEG) Glucose (Fingerstick) 78mg/dL (70-99) Total Bilirubin 0.5mg/dL (0.2-1.0) Direct Bilirubin 0.2mg/dL (0.0-0.2) Aspartate Amino Transferase (AST) 15U/L (15-37) Alanine Aminotransferase (ALT) 15U/L (14-59) Alkaline Phosphatase 117U/L (46-116) H Troponin I Quantitative 0.018ng/mL (0.000-0.055) Total Protein 7.1g/dL (6.4-8.2) Albumin 2.5g/dL (3.4-5.0) L White Blood Count 5.6x10^3/uL (4.0-11.0) Red Blood Count 4.58x10^6/uL (3.50-5.40) Hemoglobin 14.0g/dL (12.0-15.5) Hematocrit 43.3% (36.0-47.0) Mean Corpuscular Volume 95fL (79-100) Mean Corpuscular Hemoglobin 31pg (25-35) Mean Corpuscular Hemoglobin Concent 32g/dL (31-37) Red Cell Distribution Width 14.5% (11.5-14.5) Platelet Count 268x10^3/uL (140-400) Neutrophils (%) (Auto) 71% (31-73) Lymphocytes (%) (Auto) 22% (24-48) L Monocytes (%) (Auto) 6% (0-9) Eosinophils (%) (Auto) 1% (0-3) Basophils (%) (Auto) 1% (0-3) Neutrophils # (Auto) 4.0x10^3uL (1.8-7.7) Lymphocytes # (Auto) 1.2x10^3/uL (1.0-4.8) Monocytes # (Auto) 0.3x10^3/uL (0.0-1.1) Eosinophils # (Auto) 0.0x10^3/uL (0.0-0.7) Basophils # (Auto) 0.0x10^3/uL (0.0-0.2) Prothrombin Time 22.4SEC (11.7-14.0) H Prothrombin Time INR 2.1 (0.8-1.1) H PTT 46SEC (24-38) H Laboratory Tests 10/16/16 13:00 EKG EKG [] Radiology/Procedures Radiology/Procedures [] Course & Med Decision Making Course & Med Decision Making Pertinent Labs and Imaging studies reviewed. (See chart for details) [] 80-year-old female presenting to the emergency department with decreased mental status. Vital signs showed the patient is afebrile. Normal heart rate. Patient is on her baseline oxygen requirements between 2-3 L reported by the daughter here. She is mildly hypertensive at 180. Pertinent physical exam findings showed an old stroke with chronic contracture of the right upper and lower extremity. Otherwise the patient has clear speech opens her eyes spontaneously answers questions to the daughter appropriately. EKG shows leftward axis otherwise ST segments congruent not consistent with ischemia. Head CT obtained. Blood work obtained. Urinalysis obtained. Head CT unremarkable. Urinalysis suggestive of possible urinary tract infection. The patient's previous urine culture showed intermediate resistance to Keflex. The patient is currently on warfarin which can be affected significantly by some of the alternative antibiotics for urinary tract infections as the patient didn't improve. Her previous treatment of urinary tract infection so she was admitted for IV antibiotics including Rocephin. The patient was given the IV Rocephin and admitted to Doctor Shaikh for further evaluation workup and care. The patient was admitted to her at approximately 1400 at which point the patient's care was transferred. Dragon Disclaimer Dragon Disclaimer This electronic medical record was generated, in whole or in part, using a voice recognition dictation system. Departure Departure Impression: Primary Impression: Decreased level of consciousness Additional Impression: Urinary tract infection Disposition: ADMITTED INPATIENT Admitting Physician: Zoey Shaikh Condition: STABLE Referrals: UNKNOWN PCP NAME (PCP) Problem Qualifiers YUNG GUPTA MD Oct 16, 2016 12:37
[2016-10-16 13:08] LABS: ALBUMIN 2.5 g/dL (3.4-5.0); DIRECT BILIRUBIN 0.2 mg/dL (0.0-0.2); TOTAL BILIRUBIN 0.5 mg/dL (0.2-1.0); TOTAL PROTEIN 7.1 g/dL (6.4-8.2)
[2016-10-16 13:10] LABS: BASO % 1 % (0-3); EOS % 1 % (0-3); HEMATOCRIT 43.3 % (36.0-47.0); LYMPH # 1.2 x10^3/uL (1.0-4.8); LYMPH % 22 % (24-48); MEAN CORPUSCULAR HEMOGLOBIN 31 pg (25-35); MEAN CORPUSCULAR HGB CONC 32 g/dL (31-37); MEAN CORPUSCULAR VOLUME 95 fL (79-100); MONO % 6 % (0-9); NEUT % 71 % (31-73); PLATELET COUNT 268 x10^3/uL (140-400); RED BLOOD COUNT 4.58 x10^6/uL (3.50-5.40); RED CELL DISTRIBUTION WIDTH 14.5 % (11.5-14.5); WHITE BLOOD COUNT 5.6 x10^3/uL (4.0-11.0)
[2016-10-16 13:21] LABS: INR 2.1 (0.8-1.1); PROTHROMBIN TIME PATIENT 22.4 SEC (11.7-14.0)
--- NOTE | 2016-10-16 13:38 | ACF ---
Admission Forms Criteria MENTAL STATUS CHANGE Clinical Indications for Inpatient Care (Place 'X' for any and all applicable criteria): Ongoing inpatient care may be needed for 1 or more of the following(1)(2)(3)(5)( 6): [X]I. Suspected serious etiology (eg, medical disorder, STEEL LO[employer]ER event) of altered mental status [ ]II. Danger to self or others not manageable at lower level of care [ ]III. Grave disability (eg, inability to perform self care necessary at lower level of care) [ ]IV. Agitation or inappropriate behavior interfering with care for primary condition (eg, attempting to discontinue lines or drains prematurely, unable to cooperate with respiratory care) [ ]V. Delirium [A] [D][E] as described by 1 or more of the following(26): [ ]a) Delirium due to alcohol or sedative [F] withdrawal [ ]b) Delirium of uncertain etiology that has not responded to appropriate empiric treatment [ ]c) Delirium that prevents performance of a life-sustaining function (eg, feeding or hydrating oneself) [ ]. General contraindications and/or Inappropriate clinical situations for Observational Care in patients with Mental Status Change, when ANY ONE of the following is required: [ ]a) Prediction of prolongation of LOS based on ANY ONE of the following may be considered as a contraindication for observational care 2, 3, 4, 5, 6, 7, 8, 9, 10, 11 [ ]i) Age > 65 yrs. [ ]ii) Patient arriving by ambulance [ ]iii) Patient with high acuity [ ]iv) Patient requiring vital sign monitoring [ ]v) Patient on IV medication [ ]b) Systolic blood pressures greater than or equal to 180mmHg 3, 12 [ ]c) Patient with altered mental status including delirium and other alteration of consciousness, (3) [ ]d) Patient whose discharge disposition will be to a shelter home or rehabilitation home should not be managed in Emergency Department Observation Unit. CMS rule requires 3 days hospital stay before such placement.3,13 [ ]e) Patient with failure to thrive due to broad array of etiologies 3,16,17 [ ]f) Inability to ambulate 3,14 Extended stay beyond goal length of stay for the primary condition may be needed until ALL of the following are present(3)(5): [ ]a) Underlying medical etiology of mental status change is absent, or has been established and adequately treated [ ]b) Danger to self or others is absent or manageable at lower level of care. [ ]c) Behavior crisis management, including physical or chemical restraints, is not required or available at lower level of car [ ]d) Substance or alcohol withdrawal is absent or manageable at lower level of care. [ ]e) Behavioral symptoms (eg, agitation, somnolence, inappropriate behavior) are absent, or are manageable at lower level of care. The original [facility] [employer] content created by [facility] has been revised. The portions of the content which have been revised are identified through the use of italic text or in bold, and [facility] has neither reviewed nor approved the modified material. All other unmodified content is copyright [facility]. Please see references footnoted in the original [facility] edition 2016 Admission Criteria Met?: Yes LORNA GARCIA Oct 16, 2016 13:37
[2016-10-16 13:51] LABS: BILIRUBIN,URINE NEGATIVE (NEG); GLUCOSE,URINE NEGATIVE (NEG); NITRITE,URINE NEGATIVE (NEG); PH,URINE 7.5; PROTEIN,URINE NEGATIVE (NEG-TRACE); UROBILINOGEN,URINE 0.2 mg/dL (0.2 mg/dL)
[2016-10-16 13:56] LABS: BACTERIA,URINE MANY /HPF (0-FEW); RBC,URINE 0 /HPF (0-2); SQUAMOUS EPITHELIAL CELL,UR MOD /LPF; WBC,URINE OCC /HPF (0-4)
[2016-10-16] MEDS ORDERED: MORPHINE SULFATE 2 MG/ML DISP.SYRIN. IV PRN (14:00)
[2016-10-16] MEDS ORDERED: ONDANSETRON PF 4 MG/2 ML VIAL. IV PRN ×2 (14:00→15:00)
[2016-10-16] MEDS ORDERED: CEFTRIAXONE 1GM IVPB FOR OMNI 50 ML IV ONE (14:00)
--- NOTE | 2016-10-16 14:45 | PDOC1 ---
History and Physical Date of Admission Date of Admission 10/16/16 Identification/Chief Complaint Chief Complaint unresponsiveness Problems: Source Source: Caregiver, Chart review, Patient History of Present Illness History of Present Illness HPI 80-year-old female with mild dementia, was sent from SNF for unresponsiveness. Pt was here early this month for same reason , was treated for UTI and dced, MRI , EEG neg. PER daughter at bedside, pt was doing ok, till 2 days ago, slow response, and she was called by SNF today that pt was unresponsiveness and sent to ER. as per ERP, Upon arrival to our emergency department today the patient opens her eyes spontaneously. She follows simple commands which is reported by her retirement staff as baseline for the patient. Pt looks normal baseline to me now in ER, open eyes, talking, eat lunch. 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 Past Medical History Cardiovascular: CAD, HTN, Hyperlipidemia Pulmonary: COPD, Pulmonary embolus CENTRAL NERVOUS SYSTEM: CVA, Dementia, TIA GI: Diverticulosis, GERD Heme/Onc: Anemia NOS, Cancer Renal/: UTI Past Surgical History Past Surgical History: Cataract Removal, Mastectomy, Total hip replacement Family History Family History: No Significant Social History Smoke: No ALCOHOL: none Drugs: None Current Problem List Problem List Problems Medical Problems: (1) Decreased level of consciousness Status: Acute (2) Urinary tract infection Status: Acute Current Medications Current Medications Current Medications Medications (Trade) Dose Ordered Sig/Daniel Start Time Stop Time Status Last Admin Dose Admin Ceftriaxone Sodium (Rocephin 1gm Ivpb For Omni) 50 ml @ 100 mls/hr 1X ONCE 10/16/16 14:00 10/16/16 14:29 DC 10/16/16 14:27 100 MLS/HR Morphine Sulfate 2 mg PRN Q2HR PRN 10/16/16 14:00 10/17/16 13:59 Ondansetron HCl (Zofran) 4 mg PRN Q8HRS PRN 10/16/16 14:00 10/17/16 13:59 Allergies Allergies Allergies Coded Allergies Type Severity Reaction Last Updated Verified diltiazem HCl Allergy Unknown 08/13/13 Yes oxycodone Allergy Unknown 10/16/16 Yes ROS Review of System CONSTITUTIONAL: No fever or chills EYES: No recent changes SKIN: No rash or itching CARDIOVASCULAR: No chest pain, syncope, palpitations, or edema RESPIRATORY: No SOB or cough GASTROINTESTINAL: No nausea, vomiting or abdominal pain NEUROLOGICAL: No headaches or weakness ENDOCRINE: No cold or heat intolerance GENITOURINARY: No urgency or frequency of urination MUSCULOSKELETAL: No back pain or joint pain LYMPHATICS: No enlarged lymph nodes PSYCHIATRIC: No anxiety or depression Physical Exam Physical Exam GEN.: No apparent distress. Alert and orientedx2 ,to person, place, not year or even her own birthday. HEENT: Head is normocephalic, atraumatic NECK: Supple. LUNGS: Clear to auscultation. HEART: RRR, S1, S2 present. Peripheral pulses intact ABDOMEN: Soft, nontender. Positive bowel sounds. EXTREMITIES: Without any cyanosis. right side weaker 2/5 like usual. NEUROLOGIC: Normal speech, normal tone PSYCHIATRIC: Normal affect, normal mood. SKIN: No ulcerations Vitals Vitals Vital Signs Date Time Temp Pulse Resp B/P Pulse Ox O2 Delivery O2 Flow Rate FiO2 10/16/16 13:56 73 174/79 97 Nasal Cannula 2 10/16/16 11:15 97.7 24 97.7 Labs Labs Laboratory Tests Test 10/16/16 11:30 10/16/16 11:36 10/16/16 12:20 10/16/16 13:00 Urine Collection Type U cath Urine Color Yellow Urine Clarity Cloudy Urine pH 7.5 Urine Specific [place] 1.015 Urine Protein Negativemg/dL (NEG-TRACE) Urine Glucose (UA) Negativemg/dL (NEG) Urine Ketones (Stick) Tracemg/dL (NEG) Urine Blood Negative (NEG) Urine Nitrite Negative (NEG) Urine Bilirubin Negative (NEG) Urine Urobilinogen Dipstick 0.2mg/dL (0.2 mg/dL) Urine Leukocyte Esterase Trace (NEG) Urine RBC 0/HPF (0-2) Urine WBC Occ/HPF (0-4) Urine Squamous Epithelial Cells Mod/LPF Urine Transitional Epithelial Cells Occ/LPF Urine Bacteria Many/HPF (0-FEW) Urine Mucus Slight/LPF Urine Opiates Screen Pos (NEG) Urine Methadone Screen Neg (NEG) Urine Barbiturates Neg (NEG) Urine Phencyclidine Screen Neg (NEG) Urine Amphetamine/Methamphetamine Neg (NEG) Urine Benzodiazepines Screen Neg (NEG) Urine Cocaine Screen Neg (NEG) Urine Cannabinoids Screen Neg (NEG) Urine Ethyl Alcohol Neg (NEG) Glucose (Fingerstick) 78mg/dL (70-99) Total Bilirubin 0.5mg/dL (0.2-1.0) Direct Bilirubin 0.2mg/dL (0.0-0.2) Aspartate Amino Transf (AST/SGOT) 15U/L (15-37) Alanine Aminotransferase (ALT/SGPT) 15U/L (14-59) Alkaline Phosphatase 117U/L (46-116) Troponin I Quantitative 0.018ng/mL (0.000-0.055) Total Protein 7.1g/dL (6.4-8.2) Albumin 2.5g/dL (3.4-5.0) White Blood Count 5.6x10^3/uL (4.0-11.0) Red Blood Count 4.58x10^6/uL (3.50-5.40) Hemoglobin 14.0g/dL (12.0-15.5) Hematocrit 43.3% (36.0-47.0) Mean Corpuscular Volume 95fL (79-100) Mean Corpuscular Hemoglobin 31pg (25-35) Mean Corpuscular Hemoglobin Concent 32g/dL (31-37) Red Cell Distribution Width 14.5% (11.5-14.5) Platelet Count 268x10^3/uL (140-400) Neutrophils (%) (Auto) 71% (31-73) Lymphocytes (%) (Auto) 22% (24-48) Monocytes (%) (Auto) 6% (0-9) Eosinophils (%) (Auto) 1% (0-3) Basophils (%) (Auto) 1% (0-3) Neutrophils # (Auto) 4.0x10^3uL (1.8-7.7) Lymphocytes # (Auto) 1.2x10^3/uL (1.0-4.8) Monocytes # (Auto) 0.3x10^3/uL (0.0-1.1) Eosinophils # (Auto) 0.0x10^3/uL (0.0-0.7) Basophils # (Auto) 0.0x10^3/uL (0.0-0.2) Prothrombin Time 22.4SEC (11.7-14.0) Prothromb Time International Ratio 2.1 (0.8-1.1) Activated Partial Thromboplast Time 46SEC (24-38) Laboratory Tests Test 10/16/16 11:30 10/16/16 11:36 10/16/16 12:20 10/16/16 13:00 Urine Collection Type U cath Urine Color Yellow Urine Clarity Cloudy Urine pH 7.5 Urine Specific [place] 1.015 Urine Protein Negativemg/dL (NEG-TRACE) Urine Glucose (UA) Negativemg/dL (NEG) Urine Ketones (Stick) Tracemg/dL (NEG) Urine Blood Negative (NEG) Urine Nitrite Negative (NEG) Urine Bilirubin Negative (NEG) Urine Urobilinogen Dipstick 0.2mg/dL (0.2 mg/dL) Urine Leukocyte Esterase Trace (NEG) Urine RBC 0/HPF (0-2) Urine WBC Occ/HPF (0-4) Urine Squamous Epithelial Cells Mod/LPF Urine Transitional Epithelial Cells Occ/LPF Urine Bacteria Many/HPF (0-FEW) Urine Mucus Slight/LPF Urine Opiates Screen Pos (NEG) Urine Methadone Screen Neg (NEG) Urine Barbiturates Neg (NEG) Urine Phencyclidine Screen Neg (NEG) Urine Amphetamine/Methamphetamine Neg (NEG) Urine Benzodiazepines Screen Neg (NEG) Urine Cocaine Screen Neg (NEG) Urine Cannabinoids Screen Neg (NEG) Urine Ethyl Alcohol Neg (NEG) Glucose (Fingerstick) 78mg/dL (70-99) Total Bilirubin 0.5mg/dL (0.2-1.0) Direct Bilirubin 0.2mg/dL (0.0-0.2) Aspartate Amino Transf (AST/SGOT) 15U/L (15-37) Alanine Aminotransferase (ALT/SGPT) 15U/L (14-59) Alkaline Phosphatase 117U/L (46-116) Troponin I Quantitative 0.018ng/mL (0.000-0.055) Total Protein 7.1g/dL (6.4-8.2) Albumin 2.5g/dL (3.4-5.0) White Blood Count 5.6x10^3/uL (4.0-11.0) Red Blood Count 4.58x10^6/uL (3.50-5.40) Hemoglobin 14.0g/dL (12.0-15.5) Hematocrit 43.3% (36.0-47.0) Mean Corpuscular Volume 95fL (79-100) Mean Corpuscular Hemoglobin 31pg (25-35) Mean Corpuscular Hemoglobin Concent 32g/dL (31-37) Red Cell Distribution Width 14.5% (11.5-14.5) Platelet Count 268x10^3/uL (140-400) Neutrophils (%) (Auto) 71% (31-73) Lymphocytes (%) (Auto) 22% (24-48) Monocytes (%) (Auto) 6% (0-9) Eosinophils (%) (Auto) 1% (0-3) Basophils (%) (Auto) 1% (0-3) Neutrophils # (Auto) 4.0x10^3uL (1.8-7.7) Lymphocytes # (Auto) 1.2x10^3/uL (1.0-4.8) Monocytes # (Auto) 0.3x10^3/uL (0.0-1.1) Eosinophils # (Auto) 0.0x10^3/uL (0.0-0.7) Basophils # (Auto) 0.0x10^3/uL (0.0-0.2) Prothrombin Time 22.4SEC (11.7-14.0) Prothromb Time International Ratio 2.1 (0.8-1.1) Activated Partial Thromboplast Time 46SEC (24-38) VTE Prophylaxis Ordered VTE Prophylaxis Devices: Yes VTE Pharmacological Prophylaxi: No Assessment/Plan Assessment/Plan 1. AMS with unresponsiveness, likely metabolic encephalopathy with UTI, also took opoids 2. baseline mild dementia 3. from SNF 4. h/o CAD WITH PCI 5. HTN urgency 6. HLD 7. BCa post sx 8. mild malnutrition 9. h/o stroke with right side hemiparesis 10. h/o PE on warfarin 11. stable copd plan: 1. treat UTI with cefriaxone for now 2. need home meds on warfarin, inr daily PTOT, not ambulate as baseline avoid opoids ODALIS KING MD Oct 16, 2016 14:45
[2016-10-16] MEDS ORDERED: ACETAMINOPHEN 325 MG TABLET. PO PRN (15:00)
[2016-10-16] MEDS ORDERED: hydrALAZINE 20 MG/ML VIAL. IVP PRN (15:00)
[2016-10-16 16:09] VITALS: BP 126/67
[2016-10-16] MEDS ORDERED: LOPE2CAP88 PO (19:33)
[2016-10-16] MEDS ORDERED: POTA20TA82 PO (19:33)
[2016-10-16] MEDS ORDERED: GUAI100L41 PO (19:33)
[2016-10-16] MEDS ORDERED: TRAM-29 PO (19:33)
[2016-10-16] MEDS ORDERED: ACET160S PO (19:33)
[2016-10-16] MEDS ORDERED: IPRA0.2S5 NEB ×2 (19:33)
[2016-10-16] MEDS ORDERED: POLY17PO5 PO (19:33)
[2016-10-16] MEDS ORDERED: ESOM20CA30 PO (19:33)
[2016-10-16 19:59] VITALS: BP 154/75
[2016-10-16 23:55] VITALS: BP 159/71
[2016-10-17 03:59] VITALS: BP 158/68
[2016-10-17 07:00] VITALS: BP 166/65
[2016-10-17] MEDS ORDERED: NITROGLYCERIN SUBLINGUAL 0.4 MG BOTTLE OF 25. SL PRN (09:15)
[2016-10-17] MEDS ORDERED: GUAIFENESIN 200 MG/10 ML LIQUID. PO PRN (09:15)
[2016-10-17] MEDS ORDERED: LOPERAMIDE 2 MG CAPSULE PO PRN (09:15)
[2016-10-17] MEDS ORDERED: TRAMADOL 50 MG TABLET. PO PRN (09:15)
[2016-10-17] MEDS ORDERED: POLYETHYLENE GLYCOL 3350 17 GM PACKET. PO PRN (09:15)
[2016-10-17] MEDS ORDERED: IPRATROPIUM BROMIDE 0.5 MG/2.5 ML NEBU. NEB PRN (09:15)
[2016-10-17] MEDS ORDERED: ALBUTEROL SULFATE 2.5 MG/3 ML NEBU. NEB PRN (09:30)
[2016-10-17] MEDS ORDERED: MAGNESIUM HYDROXIDE 2,400 MG/30 ML ORAL.SUSP. PO PRN (09:30)
--- NOTE | 2016-10-17 10:44 | PDOC ---
PROGRESS NOTES Chief Complaint Chief Complaint 1. AMS with unresponsiveness, likely metabolic encephalopathy with UTI, also took opoids 2. baseline mild dementia 3. from SNF 4. h/o CAD WITH PCI 5. HTN urgency 6. HLD 7. BCa post sx 8. mild malnutrition 9. h/o stroke with right side hemiparesis 10. h/o PE on warfarin 11. stable copd 12. UTI History of Present Illness History of Present Illness Admitted fro UTI and change in MS SNU resident But dw RN - seems like mentation is back to normal She did not want me to wake her up - "she is a brunch person" - per RN Swallowing pills fine UTI on UA Getting IV antibiotics, urine cx pending ALl rest of med hx stable PLAn: Cont IV antibiotic Await urine cx PT/OT back to [facility] pending urine cx, sensitivitis etc. Vitals Vitals Vital Signs Date Time Temp Pulse Resp B/P Pulse Ox O2 Delivery O2 Flow Rate FiO2 10/17/16 08:00 Nasal Cannula 2.0 10/17/16 07:00 97.7 64 22 166/65 99 97.7 Physical Exam General: Alert, Oriented X3, Cooperative Heart: Regular rate, Normal S1, Normal S2 Lungs: Wheezing, Other Abdomen: Normal bowel sounds, Soft Extremities: No clubbing, No cyanosis Skin: No rashes, No breakdown Labs LABS Laboratory Tests Test 10/16/16 11:30 10/16/16 11:36 10/16/16 12:20 10/16/16 13:00 Urine Collection Type U cath Urine Color Yellow Urine Clarity Cloudy Urine pH 7.5 Urine Specific [place] 1.015 Urine Protein Negativemg/dL (NEG-TRACE) Urine Glucose (UA) Negativemg/dL (NEG) Urine Ketones (Stick) Tracemg/dL (NEG) Urine Blood Negative (NEG) Urine Nitrite Negative (NEG) Urine Bilirubin Negative (NEG) Urine Urobilinogen Dipstick 0.2mg/dL (0.2 mg/dL) Urine Leukocyte Esterase Trace (NEG) Urine RBC 0/HPF (0-2) Urine WBC Occ/HPF (0-4) Urine Squamous Epithelial Cells Mod/LPF Urine Transitional Epithelial Cells Occ/LPF Urine Bacteria Many/HPF (0-FEW) Urine Mucus Slight/LPF Urine Opiates Screen Pos (NEG) Urine Methadone Screen Neg (NEG) Urine Barbiturates Neg (NEG) Urine Phencyclidine Screen Neg (NEG) Urine Amphetamine/Methamphetamine Neg (NEG) Urine Benzodiazepines Screen Neg (NEG) Urine Cocaine Screen Neg (NEG) Urine Cannabinoids Screen Neg (NEG) Urine Ethyl Alcohol Neg (NEG) Glucose (Fingerstick) 78mg/dL (70-99) Total Bilirubin 0.5mg/dL (0.2-1.0) Direct Bilirubin 0.2mg/dL (0.0-0.2) Aspartate Amino Transf (AST/SGOT) 15U/L (15-37) Alanine Aminotransferase (ALT/SGPT) 15U/L (14-59) Alkaline Phosphatase 117U/L (46-116) Troponin I Quantitative 0.018ng/mL (0.000-0.055) Total Protein 7.1g/dL (6.4-8.2) Albumin 2.5g/dL (3.4-5.0) White Blood Count 5.6x10^3/uL (4.0-11.0) Red Blood Count 4.58x10^6/uL (3.50-5.40) Hemoglobin 14.0g/dL (12.0-15.5) Hematocrit 43.3% (36.0-47.0) Mean Corpuscular Volume 95fL (79-100) Mean Corpuscular Hemoglobin 31pg (25-35) Mean Corpuscular Hemoglobin Concent 32g/dL (31-37) Red Cell Distribution Width 14.5% (11.5-14.5) Platelet Count 268x10^3/uL (140-400) Neutrophils (%) (Auto) 71% (31-73) Lymphocytes (%) (Auto) 22% (24-48) Monocytes (%) (Auto) 6% (0-9) Eosinophils (%) (Auto) 1% (0-3) Basophils (%) (Auto) 1% (0-3) Neutrophils # (Auto) 4.0x10^3uL (1.8-7.7) Lymphocytes # (Auto) 1.2x10^3/uL (1.0-4.8) Monocytes # (Auto) 0.3x10^3/uL (0.0-1.1) Eosinophils # (Auto) 0.0x10^3/uL (0.0-0.7) Basophils # (Auto) 0.0x10^3/uL (0.0-0.2) Prothrombin Time 22.4SEC (11.7-14.0) Prothromb Time International Ratio 2.1 (0.8-1.1) Activated Partial Thromboplast Time 46SEC (24-38) Review of Systems Review of Systems asleep - did not want to be awaken - but neg 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 Labs Laboratory Tests Test 10/16/16 11:30 10/16/16 11:36 10/16/16 12:20 10/16/16 13:00 Urine Collection Type U cath Urine Color Yellow Urine Clarity Cloudy Urine pH 7.5 Urine Specific [place] 1.015 Urine Protein Negativemg/dL (NEG-TRACE) Urine Glucose (UA) Negativemg/dL (NEG) Urine Ketones (Stick) Tracemg/dL (NEG) Urine Blood Negative (NEG) Urine Nitrite Negative (NEG) Urine Bilirubin Negative (NEG) Urine Urobilinogen Dipstick 0.2mg/dL (0.2 mg/dL) Urine Leukocyte Esterase Trace (NEG) Urine RBC 0/HPF (0-2) Urine WBC Occ/HPF (0-4) Urine Squamous Epithelial Cells Mod/LPF Urine Transitional Epithelial Cells Occ/LPF Urine Bacteria Many/HPF (0-FEW) Urine Mucus Slight/LPF Urine Opiates Screen Pos (NEG) Urine Methadone Screen Neg (NEG) Urine Barbiturates Neg (NEG) Urine Phencyclidine Screen Neg (NEG) Urine Amphetamine/Methamphetamine Neg (NEG) Urine Benzodiazepines Screen Neg (NEG) Urine Cocaine Screen Neg (NEG) Urine Cannabinoids Screen Neg (NEG) Urine Ethyl Alcohol Neg (NEG) Glucose (Fingerstick) 78mg/dL (70-99) Total Bilirubin 0.5mg/dL (0.2-1.0) Direct Bilirubin 0.2mg/dL (0.0-0.2) Aspartate Amino Transf (AST/SGOT) 15U/L (15-37) Alanine Aminotransferase (ALT/SGPT) 15U/L (14-59) Alkaline Phosphatase 117U/L (46-116) Troponin I Quantitative 0.018ng/mL (0.000-0.055) Total Protein 7.1g/dL (6.4-8.2) Albumin 2.5g/dL (3.4-5.0) White Blood Count 5.6x10^3/uL (4.0-11.0) Red Blood Count 4.58x10^6/uL (3.50-5.40) Hemoglobin 14.0g/dL (12.0-15.5) Hematocrit 43.3% (36.0-47.0) Mean Corpuscular Volume 95fL (79-100) Mean Corpuscular Hemoglobin 31pg (25-35) Mean Corpuscular Hemoglobin Concent 32g/dL (31-37) Red Cell Distribution Width 14.5% (11.5-14.5) Platelet Count 268x10^3/uL (140-400) Neutrophils (%) (Auto) 71% (31-73) Lymphocytes (%) (Auto) 22% (24-48) Monocytes (%) (Auto) 6% (0-9) Eosinophils (%) (Auto) 1% (0-3) Basophils (%) (Auto) 1% (0-3) Neutrophils # (Auto) 4.0x10^3uL (1.8-7.7) Lymphocytes # (Auto) 1.2x10^3/uL (1.0-4.8) Monocytes # (Auto) 0.3x10^3/uL (0.0-1.1) Eosinophils # (Auto) 0.0x10^3/uL (0.0-0.7) Basophils # (Auto) 0.0x10^3/uL (0.0-0.2) Prothrombin Time 22.4SEC (11.7-14.0) Prothromb Time International Ratio 2.1 (0.8-1.1) Activated Partial Thromboplast Time 46SEC (24-38) Laboratory Tests Test 10/16/16 11:30 10/16/16 11:36 10/16/16 12:20 10/16/16 13:00 Urine Collection Type U cath Urine Color Yellow Urine Clarity Cloudy Urine pH 7.5 Urine Specific [place] 1.015 Urine Protein Negativemg/dL (NEG-TRACE) Urine Glucose (UA) Negativemg/dL (NEG) Urine Ketones (Stick) Tracemg/dL (NEG) Urine Blood Negative (NEG) Urine Nitrite Negative (NEG) Urine Bilirubin Negative (NEG) Urine Urobilinogen Dipstick 0.2mg/dL (0.2 mg/dL) Urine Leukocyte Esterase Trace (NEG) Urine RBC 0/HPF (0-2) Urine WBC Occ/HPF (0-4) Urine Squamous Epithelial Cells Mod/LPF Urine Transitional Epithelial Cells Occ/LPF Urine Bacteria Many/HPF (0-FEW) Urine Mucus Slight/LPF Urine Opiates Screen Pos (NEG) Urine Methadone Screen Neg (NEG) Urine Barbiturates Neg (NEG) Urine Phencyclidine Screen Neg (NEG) Urine Amphetamine/Methamphetamine Neg (NEG) Urine Benzodiazepines Screen Neg (NEG) Urine Cocaine Screen Neg (NEG) Urine Cannabinoids Screen Neg (NEG) Urine Ethyl Alcohol Neg (NEG) Glucose (Fingerstick) 78mg/dL (70-99) Total Bilirubin 0.5mg/dL (0.2-1.0) Direct Bilirubin 0.2mg/dL (0.0-0.2) Aspartate Amino Transf (AST/SGOT) 15U/L (15-37) Alanine Aminotransferase (ALT/SGPT) 15U/L (14-59) Alkaline Phosphatase 117U/L (46-116) Troponin I Quantitative 0.018ng/mL (0.000-0.055) Total Protein 7.1g/dL (6.4-8.2) Albumin 2.5g/dL (3.4-5.0) White Blood Count 5.6x10^3/uL (4.0-11.0) Red Blood Count 4.58x10^6/uL (3.50-5.40) Hemoglobin 14.0g/dL (12.0-15.5) Hematocrit 43.3% (36.0-47.0) Mean Corpuscular Volume 95fL (79-100) Mean Corpuscular Hemoglobin 31pg (25-35) Mean Corpuscular Hemoglobin Concent 32g/dL (31-37) Red Cell Distribution Width 14.5% (11.5-14.5) Platelet Count 268x10^3/uL (140-400) Neutrophils (%) (Auto) 71% (31-73) Lymphocytes (%) (Auto) 22% (24-48) Monocytes (%) (Auto) 6% (0-9) Eosinophils (%) (Auto) 1% (0-3) Basophils (%) (Auto) 1% (0-3) Neutrophils # (Auto) 4.0x10^3uL (1.8-7.7) Lymphocytes # (Auto) 1.2x10^3/uL (1.0-4.8) Monocytes # (Auto) 0.3x10^3/uL (0.0-1.1) Eosinophils # (Auto) 0.0x10^3/uL (0.0-0.7) Basophils # (Auto) 0.0x10^3/uL (0.0-0.2) Prothrombin Time 22.4SEC (11.7-14.0) Prothromb Time International Ratio 2.1 (0.8-1.1) Activated Partial Thromboplast Time 46SEC (24-38) Medications Current Medications Ceftriaxone Sodium (Rocephin 1gm Ivpb For Omni) 50 ml @ 100 mls/hr 1X ONCE IV Last administered on 10/16/16t 14:27; Start 10/16/16 at 14:00; Stop 10/16/16 at 14:29; Status DC Ondansetron HCl (Zofran) 4 mg PRN Q8HRS PRN IV NAUSEA/VOMITING; Start 10/16/16 at 14:00; Stop 10/17/16 at 09:09; Status DC Morphine Sulfate 2 mg PRN Q2HR PRN IV PAIN; Start 10/16/16 at 14:00; Stop 10/17 at 13:59 Acetaminophen (Tylenol) 650 mg PRN Q6HRS PRN PO FEVER; Start 10/16/16 at 15:00 Ondansetron HCl 4 mg 4 mg PRN Q6HRS PRN IV NAUSEA/VOMITING; Start 10/16/16 at 15:00 Ceftriaxone Sodium/Sodium Chloride (Rocephin/Iv Sodium Chloride 0.9% 50ml) 50 ml @ 100 mls/hr Q24H IV ; Start 10/17/16 at 14:30 Hydralazine HCl (Apresoline) 10 mg PRN Q4HRS PRN IVP ELEVATED BP, SEE COMMENTS ; Start 10/16/16 at 15:00 Bupropion HCl (Wellbutrin Xl) 150 mg DAILY PO ; Start 10/17/16 at 10:00 Citalopram Hydrobromide (Celexa) 20 mg DAILY PO ; Start 10/17/16 at 10:00 Ferrous Sulfate (Feosol) 325 mg BIDWMEALS PO ; Start 10/17/16 at 09:30 Guaifenesin (Robitussin) 100 mg PRN Q4HRS PRN PO CONGESTION; Start 10/17/16 at 09:15 Acetaminophen/ Hydrocodone Bitart (Lortab 5/325) 1 tab PRN Q6HRS PRN PO MODERATE - SEVERE PAIN; Start 10/17/16 at 09:15 Ipratropium [place] (Atrovent) 0.2 mg QID PRN NEB SHORTNESS OF BREATH; Start at 09:15; Status UNV Albuterol Sulfate (Ventolin Neb Soln) 2.5 mg PRN Q6HRS PRN NEB SHORTNESS OF BREATH; Start 10/17/16 at 09:30 Loperamide HCl (Imodium) 2 mg PRN QID PRN PO diarrhea; Start 10/17/16 at 09:15 Losartan Potassium (Cozaar) 25 mg DAILY PO ; Start 10/17/16 at 10:00 Nitroglycerin (Nitrostat) 0.4 mg PRN Q5MIN PRN SL CHEST PAIN; Start 10/17/16 at 09:15 Pantoprazole Sodium (Protonix) 40 mg DAILYAC PO ; Start 10/17/16 at 09:30 Polyethylene Glycol (miraLAX PACKET) 17 gm PRN DAILY PRN PO CONSTIPATION; Start 10/17/16 at 09:15 Simvastatin (Zocor) 20 mg QHS PO ; Start 10/17/16 at 21:00 Tramadol HCl (Ultram) 50 mg PRN Q12HRS PRN PO MILD PAIN; Start 10/17/16 at 09: 15 Warfarin Sodium (Coumadin) 3 mg DAILY16 PO ; Start 10/17/16 at 16:00 Non-Formulary Medication 20 mg DAILY PO ; Start 10/18/16 at 09:00; Status UNV Magnesium Hydroxide (Milk Of Magnesia) 1,200 mg PRN DAILY PRN PO CONSTIPATION; Start 10/17/16 at 09:30 Potassium Chloride (Klor-Con) 20 meq DAILYWBKFT PO ; Start 10/17/16 at 10:00 Warfarin Sodium (Coumadin Per Physician) 1 each PRN DAILY PRN MC SEE COMMENTS; Start 10/17/16 at 09:30 Active Scripts Active Reported Ultram (Tramadol Hcl) 50 Mg Tablet 1 Tab PO PRN Q12HRS PRN Tussin Chest Congestion (Guaifenesin) 100 Mg/5 Ml Liquid 100 Mg PO PRN Q4HRS PRN Potassium Chloride 20 Meq Tablet.er 20 Meq PO DAILY Nexium 24Hr (Esomeprazole Magnesium) 20 Mg Capsule.dr 20 Mg PO DAILY Miralax (Polyethylene Glycol 3350) 17 Gm Powd.pack 1 Packet PO DAILY PRN Ipratropium [place] 0.2 Mg/1 Ml Solution 1 Vial NEB Q3HRS PRN Ipratropium [place] 0.2 Mg/1 Ml Solution 1 Vial NEB QID PRN Imodium A-D (Loperamide HCl) 2 Mg Capsule 2 Mg PO PRN PRN Acetaminophen 160 Mg/5 Ml Solution 20.3 Ml PO PRN Q6HRS PRN Ferrous Sulfate 325 Mg Tablet 1 Tab PO BID Simvastatin 20 Mg Tablet 20 Mg PO QHS Pantoprazole Sodium 40 Mg Tablet.dr 40 Mg PO DAILY Nitrostat (Nitroglycerin) 0.4 Mg Tab.subl 0.4 Mg SL PRN Q5MIN Milk Of Magnesia (Magnesium Hydroxide) 2,400 Mg/10 Ml Oral.susp 1,200 Mg PO PRN DAILY Losartan Potassium 25 Mg Tablet 25 Mg PO DAILY Hydrocodone-Apap 5-325 (Hydrocodone Bit/Acetaminophen) 1 Each Tablet 1 Each PO PRN Q6HRS Duoneb 0.5 Mg-3 Mg/3 Ml Soln (Ipratropium/Albuterol Sulfate) 3 Ml Ampul.neb 3 Ml IH PRN Q6HRS Coumadin (Warfarin Sodium) 3 Mg Tablet 3 Mg PO DAILY Citalopram Hbr (Citalopram Hydrobromide) 20 Mg Tablet 20 Mg PO DAILY Bupropion Hcl Sr (Bupropion Hcl) 150 Mg Tablet.er 150 Mg PO DAILY Vitals/I & O Vital Sign - Last 24 Hours 10/16/16 10/16/16 10/16/16 10/16/16 11:15 12:00 13:00 13:56 Temp 97.7 97.7 Pulse 63 62 64 73 Resp 24 B/P 179/84 180/79 174/79 Pulse Ox 100 99 97 97 O2 Delivery Nasal Cannula Nasal Cannula Nasal Cannula Nasal Cannula O2 Flow Rate 3 2 2 2 10/16/16 10/16/16 10/16/16 10/16/16 16:09 16:51 19:59 20:00 Temp 98.4 99.0 98.4 99.0 Pulse 82 79 Resp 14 18 B/P 126/67 154/75 Pulse Ox 96 96 O2 Delivery Room Air Nasal Cannula Nasal Cannula Nasal Cannula O2 Flow Rate 2.0 2.0 2.0 10/16/16 10/17/16 10/17/16 10/17/16 23:55 03:59 07:00 08:00 Temp 97.5 98.4 97.7 97.5 98.4 97.7 Pulse 60 62 64 Resp 18 18 22 B/P 159/71 158/68 166/65 Pulse Ox 95 99 99 O2 Delivery Nasal Cannula Nasal Cannula Nasal Cannula Nasal Cannula O2 Flow Rate 2.0 2.0 2.0 2.0 Intake and Output 10/16/16 10/16/16 10/17/16 15:00 23:00 07:00 Intake Total 290 ml Balance 290 ml SEAN HELTON MD Oct 17, 2016 10:44
[2016-10-17 11:00] VITALS: BP 164/67
[2016-10-17] MEDS: buPROPion XL 150 MG TAB.ER.24H. PO SCH (12:41)
[2016-10-17] MEDS: PANTOPRAZOLE 40 MG TABLET.DR. PO SCH (12:42)
[2016-10-17] MEDS: CITALOPRAM 20 MG TABLET. PO SCH (12:42)
[2016-10-17] MEDS: LOSARTAN POTASSIUM 25 MG TABLET. PO SCH (12:42)
[2016-10-17] MEDS: FERROUS SULFATE 325 MG TABLET. PO SCH ×2 (12:42→17:07)
[2016-10-17] MEDS: POTASSIUM CHLORIDE 20 MEQ TABLET.ER. PO SCH (12:42)
[2016-10-17 14:41] VITALS: BP 136/80
[2016-10-17] MEDS: CEFTRIAXONE SODIUM 1 GM in IV NORMAL SALINE 50ML 50 ML IV SCH (15:40)
[2016-10-17] MEDS: WARFARIN 3 MG TABLET. PO SCH (17:07)
[2016-10-17 19:00] VITALS: BP 140/74
[2016-10-17] MEDS: SIMVASTATIN 20 MG TABLET PO SCH (21:25)
[2016-10-17] MEDS: HYDROCODONE/APAP 5/325MG TABLET. PO PRN (21:26)
[2016-10-17 22:44] VITALS: BP 131/64
[2016-10-18 03:05] VITALS: BP 163/66
[2016-10-18] MEDS: HYDROCODONE/APAP 5/325MG TABLET. PO PRN (03:50)
[2016-10-18 05:09] LABS: INR 2.3 (0.8-1.1); PROTHROMBIN TIME PATIENT 23.5 SEC (11.7-14.0)
[2016-10-18 07:00] VITALS: BP 183/71
[2016-10-18] MEDS ORDERED: ESOMEPRAZOLE MAGNESIUM 20 MG PO SCH (09:00)
[2016-10-18] MEDS: buPROPion XL 150 MG TAB.ER.24H. PO SCH (09:28)
[2016-10-18] MEDS: FERROUS SULFATE 325 MG TABLET. PO SCH ×2 (09:28→17:41)
[2016-10-18] MEDS: POTASSIUM CHLORIDE 20 MEQ TABLET.ER. PO SCH (09:29)
[2016-10-18] MEDS: CITALOPRAM 20 MG TABLET. PO SCH (09:29)
[2016-10-18] MEDS: LOSARTAN POTASSIUM 25 MG TABLET. PO SCH (09:30)
[2016-10-18] MEDS: PANTOPRAZOLE 40 MG TABLET.DR. PO SCH (09:31)
[2016-10-18 10:56] VITALS: BP 109/51
--- NOTE | 2016-10-18 11:49 | PDOC ---
PROGRESS NOTES Chief Complaint Chief Complaint 1. AMS with unresponsiveness, likely metabolic encephalopathy with UTI, also took opioids improving. 2. baseline mild dementia 3. UTI 4. h/o CAD WITH PCI 5. HTN urgency 6. HLD 7. BCa post sx 8. mild malnutrition 9. h/o stroke with right side hemiparesis 10. h/o PE on warfarin 11. stable copd Plan continue current abx - IV Rocephin Ucx and sensitivities pending labs reviewed, PT/OT Warfarin dosing INR 2-3. D/W RN History of Present Illness History of Present Illness NO FEVER ALERT Vitals Vitals Vital Signs Date Time Temp Pulse Resp B/P Pulse Ox O2 Delivery O2 Flow Rate FiO2 10/18/16 10:56 97.6 87 20 109/51 99 Nasal Cannula 2.0 97.6 Physical Exam General: Alert, Cooperative Heart: Regular rate, Normal S1, Normal S2 Lungs: Wheezing, Other Abdomen: Normal bowel sounds, Soft Extremities: No clubbing, No cyanosis Skin: No rashes, No breakdown Labs LABS Laboratory Tests Test 10/18/16 04:20 Prothrombin Time 23.5SEC (11.7-14.0) Prothromb Time International Ratio 2.3 (0.8-1.1) Assessment and Plan Assessmemt and Plan Problems Medical Problems: (1) Decreased level of consciousness Status: Acute (2) Urinary tract infection Status: Acute Problems: Comment Review of Relevant I have reviewed the following items prince (where applicable) has been applied. Labs Laboratory Tests Test 10/16/16 12:20 10/16/16 13:00 10/16/16 20:30 10/18/16 04:20 Total Bilirubin 0.5mg/dL (0.2-1.0) Direct Bilirubin 0.2mg/dL (0.0-0.2) Aspartate Amino Transf (AST/SGOT) 15U/L (15-37) Alanine Aminotransferase (ALT/SGPT) 15U/L (14-59) Alkaline Phosphatase 117U/L (46-116) Troponin I Quantitative 0.018ng/mL (0.000-0.055) Total Protein 7.1g/dL (6.4-8.2) Albumin 2.5g/dL (3.4-5.0) White Blood Count 5.6x10^3/uL (4.0-11.0) Red Blood Count 4.58x10^6/uL (3.50-5.40) Hemoglobin 14.0g/dL (12.0-15.5) Hematocrit 43.3% (36.0-47.0) Mean Corpuscular Volume 95fL (79-100) Mean Corpuscular Hemoglobin 31pg (25-35) Mean Corpuscular Hemoglobin Concent 32g/dL (31-37) Red Cell Distribution Width 14.5% (11.5-14.5) Platelet Count 268x10^3/uL (140-400) Neutrophils (%) (Auto) 71% (31-73) Lymphocytes (%) (Auto) 22% (24-48) Monocytes (%) (Auto) 6% (0-9) Eosinophils (%) (Auto) 1% (0-3) Basophils (%) (Auto) 1% (0-3) Neutrophils # (Auto) 4.0x10^3uL (1.8-7.7) Lymphocytes # (Auto) 1.2x10^3/uL (1.0-4.8) Monocytes # (Auto) 0.3x10^3/uL (0.0-1.1) Eosinophils # (Auto) 0.0x10^3/uL (0.0-0.7) Basophils # (Auto) 0.0x10^3/uL (0.0-0.2) Prothrombin Time 22.4SEC (11.7-14.0) 23.5SEC (11.7-14.0) Prothromb Time International Ratio 2.1 (0.8-1.1) 2.3 (0.8-1.1) Activated Partial Thromboplast Time 46SEC (24-38) Nasal Screen MRSA (PCR) Negative (Negative) Laboratory Tests Test 10/18/16 04:20 Prothrombin Time 23.5SEC (11.7-14.0) Prothromb Time International Ratio 2.3 (0.8-1.1) Microbiology 10/16/16 Urine Culture - Preliminary, Resulted 10/16/16 Urine Culture Result 1 (TONO) - Preliminary, Resulted Medications Current Medications Ceftriaxone Sodium (Rocephin 1gm Ivpb For Omni) 50 ml @ 100 mls/hr 1X ONCE IV Last administered on 10/16/16t 14:27; Start 10/16/16 at 14:00; Stop 10/16/16 at 14:29; Status DC Ondansetron HCl (Zofran) 4 mg PRN Q8HRS PRN IV NAUSEA/VOMITING; Start 10/16/16 at 14:00; Stop 10/17/16 at 09:09; Status DC Morphine Sulfate 2 mg PRN Q2HR PRN IV PAIN; Start 10/16/16 at 14:00; Stop 10/17 at 13:59; Status DC Acetaminophen (Tylenol) 650 mg PRN Q6HRS PRN PO FEVER; Start 10/16/16 at 15:00 Ondansetron HCl 4 mg 4 mg PRN Q6HRS PRN IV NAUSEA/VOMITING; Start 10/16/16 at 15:00 Ceftriaxone Sodium/Sodium Chloride (Rocephin/Iv Sodium Chloride 0.9% 50ml) 50 ml @ 100 mls/hr Q24H IV Last administered on 10/17/16 15:40; Start 10/17/16 at 14:30 Hydralazine HCl (Apresoline) 10 mg PRN Q4HRS PRN IVP ELEVATED BP, SEE COMMENTS ; Start 10/16/16 at 15:00 Bupropion HCl (Wellbutrin Xl) 150 mg DAILY PO Last administered on 10/18/16 09 :28; Start 10/17/16 at 10:00 Citalopram Hydrobromide (Celexa) 20 mg DAILY PO Last administered on 10/18/16 09:29; Start 10/17/16 at 10:00 Ferrous Sulfate (Feosol) 325 mg BIDWMEALS PO Last administered on 10/18/16 09: 28; Start 10/17/16 at 09:30 Guaifenesin (Robitussin) 100 mg PRN Q4HRS PRN PO CONGESTION; Start 10/17/16 at 09:15 Acetaminophen/ Hydrocodone Bitart (Lortab 5/325) 1 tab PRN Q6HRS PRN PO MODERATE - SEVERE PAIN Last administered on 10/18/16 03:50; Start 10/17/16 at 09:15 Ipratropium Felt (Atrovent) 0.2 mg QID PRN NEB SHORTNESS OF BREATH; Start at 09:15; Status UNV Albuterol Sulfate (Ventolin Neb Soln) 2.5 mg PRN Q6HRS PRN NEB SHORTNESS OF BREATH; Start 10/17/16 at 09:30 Loperamide HCl (Imodium) 2 mg PRN QID PRN PO diarrhea; Start 10/17/16 at 09:15 Losartan Potassium (Cozaar) 25 mg DAILY PO Last administered on 10/18/16 09:30 ; Start 10/17/16 at 10:00 Nitroglycerin (Nitrostat) 0.4 mg PRN Q5MIN PRN SL CHEST PAIN; Start 10/17/16 at 09:15 Pantoprazole Sodium (Protonix) 40 mg DAILYAC PO Last administered on 10/18/16 09:31; Start 10/17/16 at 09:30 Polyethylene Glycol (miraLAX PACKET) 17 gm PRN DAILY PRN PO CONSTIPATION; Start 10/17/16 at 09:15 Simvastatin (Zocor) 20 mg QHS PO Last administered on 10/17/16 21:25; Start at 21:00 Tramadol HCl (Ultram) 50 mg PRN Q12HRS PRN PO MILD PAIN; Start 10/17/16 at 09: 15 Warfarin Sodium (Coumadin) 3 mg DAILY16 PO Last administered on 10/17/16 17:07 ; Start 10/17/16 at 16:00 Non-Formulary Medication 20 mg DAILY PO ; Start 10/18/16 at 09:00; Status UNV Magnesium Hydroxide (Milk Of Magnesia) 1,200 mg PRN DAILY PRN PO CONSTIPATION; Start 10/17/16 at 09:30 Potassium Chloride (Klor-Con) 20 meq DAILYWBKFT PO Last administered on 09:29; Start 10/17/16 at 10:00 Warfarin Sodium (Coumadin Per Physician) 1 each PRN DAILY PRN MC SEE COMMENTS; Start 10/17/16 at 09:30 Active Scripts Active Reported Ultram (Tramadol Hcl) 50 Mg Tablet 1 Tab PO PRN Q12HRS PRN Tussin Chest Congestion (Guaifenesin) 100 Mg/5 Ml Liquid 100 Mg PO PRN Q4HRS PRN Potassium Chloride 20 Meq Tablet.er 20 Meq PO DAILY Nexium 24Hr (Esomeprazole Magnesium) 20 Mg Capsule.dr 20 Mg PO DAILY Miralax (Polyethylene Glycol 3350) 17 Gm Powd.pack 1 Packet PO DAILY PRN Ipratropium Felt 0.2 Mg/1 Ml Solution 1 Vial NEB Q3HRS PRN Ipratropium Felt 0.2 Mg/1 Ml Solution 1 Vial NEB QID PRN Imodium A-D (Loperamide HCl) 2 Mg Capsule 2 Mg PO PRN PRN Acetaminophen 160 Mg/5 Ml Solution 20.3 Ml PO PRN Q6HRS PRN Ferrous Sulfate 325 Mg Tablet 1 Tab PO BID Simvastatin 20 Mg Tablet 20 Mg PO QHS Pantoprazole Sodium 40 Mg Tablet.dr 40 Mg PO DAILY Nitrostat (Nitroglycerin) 0.4 Mg Tab.subl 0.4 Mg SL PRN Q5MIN Milk Of Magnesia (Magnesium Hydroxide) 2,400 Mg/10 Ml Oral.susp 1,200 Mg PO PRN DAILY Losartan Potassium 25 Mg Tablet 25 Mg PO DAILY Hydrocodone-Apap 5-325 (Hydrocodone Bit/Acetaminophen) 1 Each Tablet 1 Each PO PRN Q6HRS Duoneb 0.5 Mg-3 Mg/3 Ml Soln (Ipratropium/Albuterol Sulfate) 3 Ml Ampul.neb 3 Ml IH PRN Q6HRS Coumadin (Warfarin Sodium) 3 Mg Tablet 3 Mg PO DAILY Citalopram Hbr (Citalopram Hydrobromide) 20 Mg Tablet 20 Mg PO DAILY Bupropion Hcl Sr (Bupropion Hcl) 150 Mg Tablet.er 150 Mg PO DAILY Vitals/I & O Vital Sign - Last 24 Hours 10/17/16 10/17/16 10/17/16 10/17/16 12:42 14:41 19:00 20:00 Temp 98.6 98.5 98.6 98.5 Pulse 61 89 86 Resp 22 15 B/P 164/67 136/80 140/74 Pulse Ox 96 97 O2 Delivery Nasal Cannula Nasal Cannula Nasal Cannula O2 Flow Rate 2.0 2.0 2.0 10/17/16 10/18/16 10/18/16 10/18/16 22:44 03:05 07:00 07:45 Temp 98.3 98.1 97.9 98.3 98.1 97.9 Pulse 74 59 64 Resp 16 14 18 B/P 131/64 163/66 183/71 Pulse Ox 98 96 99 O2 Delivery Nasal Cannula Nasal Cannula Nasal Cannula Nasal Cannula O2 Flow Rate 2.0 2.0 2.0 2.0 10/18/16 10/18/16 09:30 10:56 Temp 97.6 97.6 Pulse 64 87 Resp 20 B/P 183/71 109/51 Pulse Ox 99 O2 Delivery Nasal Cannula O2 Flow Rate 2.0 Intake and Output 10/17/16 10/17/16 10/18/16 15:00 23:00 07:00 Intake Total 60 ml 315 ml 300 ml Balance 60 ml 315 ml 300 ml JOSE DALY MD Oct 18, 2016 11:49
[2016-10-18 14:37] VITALS: BP 137/69
[2016-10-18] MEDS: CEFTRIAXONE SODIUM 1 GM in IV NORMAL SALINE 50ML 50 ML IV SCH (15:39)
[2016-10-18] MEDS: WARFARIN 3 MG TABLET. PO SCH (17:41)
[2016-10-18 19:00] VITALS: BP 141/71
[2016-10-18] MEDS: SIMVASTATIN 20 MG TABLET PO SCH (20:41)
[2016-10-18 23:00] VITALS: BP 132/60
[2016-10-19 03:00] VITALS: BP 146/69
[2016-10-19 07:00] VITALS: BP 152/69
[2016-10-19] MEDS: LOSARTAN POTASSIUM 25 MG TABLET. PO SCH (09:34)
[2016-10-19] MEDS: POTASSIUM CHLORIDE 20 MEQ TABLET.ER. PO SCH (09:34)
[2016-10-19] MEDS: buPROPion XL 150 MG TAB.ER.24H. PO SCH (09:34)
[2016-10-19] MEDS: PANTOPRAZOLE 40 MG TABLET.DR. PO SCH (09:35)
[2016-10-19] MEDS: FERROUS SULFATE 325 MG TABLET. PO SCH (09:35)
[2016-10-19] MEDS: CITALOPRAM 20 MG TABLET. PO SCH (09:35)
[2016-10-19] MEDS ORDERED: LINEZOLID 600 MG TABLET PO SCH (10:00)
--- NOTE | 2016-10-19 10:00 | PDOC ---
PROGRESS NOTES Chief Complaint Chief Complaint 1. AMS with unresponsiveness, likely metabolic encephalopathy with UTI, resolving. 2. baseline mild dementia 3. UTI enterococcus 4. h/o CAD WITH PCI 5. HTN urgency 6. HLD 7. BCa post sx 8. Mild malnutrition 9. h/o stroke with right side hemiparesis 10. h/o PE on warfarin 11. stable COPD Plan abx change to PO Zyvox PT/OT encourage oral nutrition Continue current care PRN hydralazine Warfarin dosing INR 2-3. D/W RN History of Present Illness History of Present Illness NO FEVER ALERT Vitals Vitals Vital Signs Date Time Temp Pulse Resp B/P Pulse Ox O2 Delivery O2 Flow Rate FiO2 10/19/16 09:34 60 152/69 10/19/16 07:00 98.3 16 90 Nasal Cannula 2.0 98.3 Physical Exam General: Alert, Oriented X3, Cooperative Heart: Regular rate, Normal S1, Normal S2 Lungs: Wheezing, Other Abdomen: Normal bowel sounds, Soft Extremities: No clubbing, No cyanosis Skin: No rashes, No breakdown Assessment and Plan Assessmemt and Plan Problems Medical Problems: (1) Decreased level of consciousness Status: Acute (2) Urinary tract infection Status: Acute Problems: Comment Review of Relevant I have reviewed the following items prince (where applicable) has been applied. Labs Laboratory Tests Test 10/18/16 04:20 Prothrombin Time 23.5SEC (11.7-14.0) Prothromb Time International Ratio 2.3 (0.8-1.1) Microbiology 10/16/16 Urine Culture - Final, Complete 10/16/16 Urine Culture Result 1 (TONO) - Final, Complete 10/16/16 Antimicrobic Susceptibility - Final, Complete Medications Current Medications Ceftriaxone Sodium (Rocephin 1gm Ivpb For Omni) 50 ml @ 100 mls/hr 1X ONCE IV Last administered on 10/16/16t 14:27; Start 10/16/16 at 14:00; Stop 10/16/16 at 14:29; Status DC Ondansetron HCl (Zofran) 4 mg PRN Q8HRS PRN IV NAUSEA/VOMITING; Start 10/16/16 at 14:00; Stop 10/17/16 at 09:09; Status DC Morphine Sulfate 2 mg PRN Q2HR PRN IV PAIN; Start 10/16/16 at 14:00; Stop 10/17 at 13:59; Status DC Acetaminophen (Tylenol) 650 mg PRN Q6HRS PRN PO FEVER; Start 10/16/16 at 15:00 Ondansetron HCl 4 mg 4 mg PRN Q6HRS PRN IV NAUSEA/VOMITING; Start 10/16/16 at 15:00 Ceftriaxone Sodium/Sodium Chloride (Rocephin/Iv Sodium Chloride 0.9% 50ml) 50 ml @ 100 mls/hr Q24H IV Last administered on 10/18/16 15:39; Start 10/17/16 at 14:30 Hydralazine HCl (Apresoline) 10 mg PRN Q4HRS PRN IVP ELEVATED BP, SEE COMMENTS ; Start 10/16/16 at 15:00 Bupropion HCl (Wellbutrin Xl) 150 mg DAILY PO Last administered on 10/19/16 09 :34; Start 10/17/16 at 10:00 Citalopram Hydrobromide (Celexa) 20 mg DAILY PO Last administered on 10/19/16 09:35; Start 10/17/16 at 10:00 Ferrous Sulfate (Feosol) 325 mg BIDWMEALS PO Last administered on 10/19/16 09: 35; Start 10/17/16 at 09:30 Guaifenesin (Robitussin) 100 mg PRN Q4HRS PRN PO CONGESTION; Start 10/17/16 at 09:15 Acetaminophen/ Hydrocodone Bitart (Lortab 5/325) 1 tab PRN Q6HRS PRN PO MODERATE - SEVERE PAIN Last administered on 10/18/16 03:50; Start 10/17/16 at 09:15 Ipratropium [place] (Atrovent) 0.2 mg QID PRN NEB SHORTNESS OF BREATH; Start at 09:15; Status UNV Albuterol Sulfate (Ventolin Neb Soln) 2.5 mg PRN Q6HRS PRN NEB SHORTNESS OF BREATH; Start 10/17/16 at 09:30 Loperamide HCl (Imodium) 2 mg PRN QID PRN PO diarrhea; Start 10/17/16 at 09:15 Losartan Potassium (Cozaar) 25 mg DAILY PO Last administered on 10/19/16 09:34 ; Start 10/17/16 at 10:00 Nitroglycerin (Nitrostat) 0.4 mg PRN Q5MIN PRN SL CHEST PAIN; Start 10/17/16 at 09:15 Pantoprazole Sodium (Protonix) 40 mg DAILYAC PO Last administered on 10/19/16 09:35; Start 10/17/16 at 09:30 Polyethylene Glycol (miraLAX PACKET) 17 gm PRN DAILY PRN PO CONSTIPATION; Start 10/17/16 at 09:15 Simvastatin (Zocor) 20 mg QHS PO Last administered on 10/18/16 20:41; Start at 21:00 Tramadol HCl (Ultram) 50 mg PRN Q12HRS PRN PO MILD PAIN; Start 10/17/16 at 09: 15 Warfarin Sodium (Coumadin) 3 mg DAILY16 PO Last administered on 10/18/16 17:41 ; Start 10/17/16 at 16:00 Non-Formulary Medication 20 mg DAILY PO ; Start 10/18/16 at 09:00; Status UNV Magnesium Hydroxide (Milk Of Magnesia) 1,200 mg PRN DAILY PRN PO CONSTIPATION; Start 10/17/16 at 09:30 Potassium Chloride (Klor-Con) 20 meq DAILYWBKFT PO Last administered on 09:34; Start 10/17/16 at 10:00 Warfarin Sodium (Coumadin Per Physician) 1 each PRN DAILY PRN MC SEE COMMENTS Last administered on 10/18/16 16:47; Start 10/17/16 at 09:30 Active Scripts Active Reported Ultram (Tramadol Hcl) 50 Mg Tablet 1 Tab PO PRN Q12HRS PRN Tussin Chest Congestion (Guaifenesin) 100 Mg/5 Ml Liquid 100 Mg PO PRN Q4HRS PRN Potassium Chloride 20 Meq Tablet.er 20 Meq PO DAILY Nexium 24Hr (Esomeprazole Magnesium) 20 Mg Capsule.dr 20 Mg PO DAILY Miralax (Polyethylene Glycol 3350) 17 Gm Powd.pack 1 Packet PO DAILY PRN Ipratropium [place] 0.2 Mg/1 Ml Solution 1 Vial NEB Q3HRS PRN Ipratropium [place] 0.2 Mg/1 Ml Solution 1 Vial NEB QID PRN Imodium A-D (Loperamide HCl) 2 Mg Capsule 2 Mg PO PRN PRN Acetaminophen 160 Mg/5 Ml Solution 20.3 Ml PO PRN Q6HRS PRN Ferrous Sulfate 325 Mg Tablet 1 Tab PO BID Simvastatin 20 Mg Tablet 20 Mg PO QHS Pantoprazole Sodium 40 Mg Tablet.dr 40 Mg PO DAILY Nitrostat (Nitroglycerin) 0.4 Mg Tab.subl 0.4 Mg SL PRN Q5MIN Milk Of Magnesia (Magnesium Hydroxide) 2,400 Mg/10 Ml Oral.susp 1,200 Mg PO PRN DAILY Losartan Potassium 25 Mg Tablet 25 Mg PO DAILY Hydrocodone-Apap 5-325 (Hydrocodone Bit/Acetaminophen) 1 Each Tablet 1 Each PO PRN Q6HRS Duoneb 0.5 Mg-3 Mg/3 Ml Soln (Ipratropium/Albuterol Sulfate) 3 Ml Ampul.neb 3 Ml IH PRN Q6HRS Coumadin (Warfarin Sodium) 3 Mg Tablet 3 Mg PO DAILY Citalopram Hbr (Citalopram Hydrobromide) 20 Mg Tablet 20 Mg PO DAILY Bupropion Hcl Sr (Bupropion Hcl) 150 Mg Tablet.er 150 Mg PO DAILY Vitals/I & O Vital Sign - Last 24 Hours 10/18/16 10/18/16 10/18/16 10/18/16 10:56 14:37 19:00 20:00 Temp 97.6 98.0 98.4 97.6 98.0 98.4 Pulse 87 75 70 Resp 16 B/P 109/51 137/69 141/71 Pulse Ox 99 98 O2 Delivery Nasal Cannula Nasal Cannula Nasal Cannula O2 Flow Rate 2.0 2.0 2.0 10/18/16 10/19/16 10/19/16 10/19/16 23:00 03:00 07:00 09:34 Temp 98.4 98.2 98.3 98.4 98.2 98.3 Pulse 62 61 60 60 Resp 16 B/P 132/60 146/69 152/69 152/69 Pulse Ox 94 98 90 O2 Delivery Nasal Cannula O2 Flow Rate 2.0 Intake and Output 10/18/16 10/18/16 10/19/16 15:00 23:00 07:00 Intake Total 120 ml 75 ml 120 ml Output Total 0 ml Balance 120 ml 75 ml 120 ml JOSE DALY MD Oct 19, 2016 10:00
[2016-10-19 11:00] VITALS: BP 138/69
[2016-10-19] MEDS ORDERED: LINE600T PO (13:29)
--- NOTE | 2016-10-20 07:26 | DS ---
DATE OF DISCHARGE: 10/19/2016 DISCHARGE DIAGNOSES: 1. Acute metabolic encephalopathy due to urinary tract infection, Enterococcus, resolved. 2. Baseline mild dementia, stable. 3. History of coronary artery disease with PCI. 4. Enterococcus urinary tract infection. 5. Hypertensive urgency, resolved. 6. History of stroke with right-sided hemiparesis. 7. Prior history of PE, on warfarin. 8. Chronic obstructive pulmonary disease, chronic, stable. BRIEF HOSPITAL COURSE: An 80-year-old female patient admitted to the hospital with acute metabolic encephalopathy. On admission, the patient was suspected and treated for urinary tract infection. She ____ cultures were positive for Enterococcus; however, antibiotic sensitivities showed the patient is sensitive to vancomycin and tetracycline, and antibiotics have been changed to ____. At the time of discharge, the patient's mental status improved and she is back to her baseline, deemed stable enough to go to nursing home home and follow up with primary care doctor. DISCHARGE EXAMINATION: Please see my progress note. DISCHARGE CONDITION: Stable. DISCHARGE MEDICATIONS: Zyvox 600 mg p.o. b.i.d. for 5 days. FOLLOWUP: With primary care doctor. DIET: Cardiac diet. Total time spent for discharge is 35 minutes for the patient education, counseling, and coordination of care. JOSE DALY MD DR: VIVI/dieter JOB#: [id number] / [id number]
== END 2016-10-19 15:40 | DRG 689 ==
LOC: ER 11:15 → 5 SOUTH 14:10 → ER 15:09
PROVIDERS: ADMIT Internal Medicine; ATTEND Internal Medicine
DX: N39.0 Urinary tract infection, site not specified (principal); G93.41 Metabolic encephalopathy; E44.1 Mild protein-calorie malnutrition; I69.351 Hemiplegia and hemiparesis following cerebral infarction affecting right dominant side; Z68.1 Body mass index [BMI] 19.9 or less, adult; I16.0 Hypertensive urgency; J44.9 Chronic obstructive pulmonary disease, unspecified; B95.2 Enterococcus as the cause of diseases classified elsewhere; E78.00 Pure hypercholesterolemia, unspecified; E78.5 Hyperlipidemia, unspecified; F03.90 Unspecified dementia, unspecified severity, without behavioral disturbance, psychotic disturbance, mood disturbance, and anxiety; I10 Essential (primary) hypertension; I25.10 Atherosclerotic heart disease of native coronary artery without angina pectoris; K21.9 Gastro-esophageal reflux disease without esophagitis; Z96.649 Presence of unspecified artificial hip joint; D64.9 Anemia, unspecified; F32.9 Major depressive disorder, single episode, unspecified; G47.00 Insomnia, unspecified; H26.9 Unspecified cataract; K57.90 Diverticulosis of intestine, part unspecified, without perforation or abscess without bleeding; Z86.711 Personal history of pulmonary embolism; Z88.8 Allergy status to other drugs, medicaments and biological substances; I25.2 Old myocardial infarction
CPT/HCPCS: 36415; 70450; 80076; 81001; 82947; 84484; 85027; 85610; 85730; 87086; 87186; 87641; 93005; 96365; G0481; J0690; J0696; 99285-25

== ENCOUNTER 2016-10-25 11:13 | Emergency (ER) | payer MEDICARE, OTHER ==
[~2016-10-25] VITALS: Ht 165.1 cm; Wt 50.8 kg
[~2016-10-25 11:13] MED LIST changes: +ACET160S PO; +ESOM20CA30 PO; +GUAI100L41 PO; +IPRA0.2S5 NEB; +LINE600T PO; +LOPE2CAP88 PO; +POLY17PO29 PO; +POTA20TA82 PO; +TRAM-29 PO; -WARF3TAB PO; +WARF3TAB54 PO
[2016-10-25 11:15] VITALS: BP 154/80
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
[2016-10-25] MEDS ORDERED: TETANUS AND DIPHTHERIA TOX/PF 0.5 ML DISP.SYRIN. VAX IM ONE (12:30)
[2016-10-25] MEDS ORDERED: NEOMY/BACITR/POLYMYXIN OINT PACKET. TP ONE ×2 (12:36→13:00)
== END 2016-10-25 13:36 | disposition home or self-care (01) ==
LOC: ER 11:13
DX: S80.12XA Contusion of left lower leg, initial encounter (principal); S80.812A Abrasion, left lower leg, initial encounter; R21 Rash and other nonspecific skin eruption; I25.10 Atherosclerotic heart disease of native coronary artery without angina pectoris; J44.9 Chronic obstructive pulmonary disease, unspecified; E78.00 Pure hypercholesterolemia, unspecified; I10 Essential (primary) hypertension; I25.2 Old myocardial infarction; F32.9 Major depressive disorder, single episode, unspecified; G47.00 Insomnia, unspecified; Z86.711 Personal history of pulmonary embolism; Z88.5 Allergy status to narcotic agent; Z88.8 Allergy status to other drugs, medicaments and biological substances; X58.XXXA Exposure to other specified factors, initial encounter; Y93.89 Activity, other specified; Y92.89 Other specified places as the place of occurrence of the external cause; Y99.8 Other external cause status
CPT/HCPCS: 90471; 90714; 99283-25

== ENCOUNTER 2016-10-27 17:11 | Emergency (ER) | payer MEDICARE, OTHER ==
[~2016-10-27] VITALS: Ht 165.1 cm; Wt 56.7 kg
[2016-10-27 18:01] LABS: BASO % 1 % (0-3); EOS % 0 % (0-3); HEMATOCRIT 39.9 % (36.0-47.0); LYMPH # 1.2 x10^3/uL (1.0-4.8); LYMPH % 21 % (24-48); MEAN CORPUSCULAR HEMOGLOBIN 31 pg (25-35); MEAN CORPUSCULAR HGB CONC 33 g/dL (31-37); MEAN CORPUSCULAR VOLUME 95 fL (79-100); MONO % 7 % (0-9); NEUT % 71 % (31-73); PLATELET COUNT 224 x10^3/uL (140-400); RED BLOOD COUNT 4.18 x10^6/uL (3.50-5.40); RED CELL DISTRIBUTION WIDTH 14.7 % (11.5-14.5); WHITE BLOOD COUNT 5.6 x10^3/uL (4.0-11.0)
[2016-10-27 18:18] LABS: CALCIUM 8.3 mg/dL (8.5-10.1); CREATININE 0.9 mg/dL (0.6-1.0); GFR 59.9; POTASSIUM 3.6 mmol/L (3.5-5.1)
[2016-10-27 18:24] LABS: ALBUMIN 2.4 g/dL (3.4-5.0); ALBUMIN/GLOBULIN RATIO 0.6 (1.0-1.7); TOTAL BILIRUBIN 0.5 mg/dL (0.2-1.0); TOTAL PROTEIN 6.7 g/dL (6.4-8.2)
[2016-10-27 18:26] LABS: PROTHROMBIN TIME PATIENT 56.5 SEC (11.7-14.0)
[2016-10-27] MEDS ORDERED: PHYTONADIONE (VIT K1) 5 MG TABLET PO ONE (18:45)
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
[2016-10-27 19:18] VITALS: BP 166/74
== END 2016-10-27 20:15 | disposition home or self-care (01) ==
LOC: ER 17:11
DX: T45.511A Poisoning by anticoagulants, accidental (unintentional), initial encounter (principal); S41.111A Laceration without foreign body of right upper arm, initial encounter; J44.9 Chronic obstructive pulmonary disease, unspecified; Z79.01 Long term (current) use of anticoagulants; Z86.73 Personal history of transient ischemic attack (TIA), and cerebral infarction without residual deficits; I25.10 Atherosclerotic heart disease of native coronary artery without angina pectoris; I10 Essential (primary) hypertension; F32.9 Major depressive disorder, single episode, unspecified; E78.00 Pure hypercholesterolemia, unspecified; Y92.89 Other specified places as the place of occurrence of the external cause
CPT/HCPCS: 12002; 36415; 80053; 85027; 85610; 99284-25